=== PATIENT | male | born 1980 | race Caucasian/White ===

== ENCOUNTER 2016-10-18 11:14 | Outpatient (CLI) ==
[2016-05-26 05:33] VITALS: BMI 38.4
[2016-10-18 12:30] LABS: ALBUMIN 3.8 g/dL (3.4-5.0); ALBUMIN/GLOBULIN RATIO 1.27; ANION GAP 13.2; BILIRUBIN,TOTAL 0.45 mg/dL (0.00-1.20); BUN/CREATININE RATIO 11.32; CALCIUM 9.1 mg/dL (8.2-10.2); CHOL/HDL RATIO 5.2 (4.5-6.4); CREATININE 1.06 mg/dL (0.60-1.10); POTASSIUM 4.2 mmol/L (3.5-5.1); TOTAL PROTEIN 6.8 g/dL (6.4-8.2)
[2016-10-19 09:38] LABS: VITAMIN D25 17.5 ng/mL (30.0-100.0)
== END 2016-10-18 11:15 | disposition home or self-care (01) ==
LOC: LAB 11:14
PROVIDERS: ATTEND Internal Medicine Endocrinology, Diabetes & Metabolism
DX: E04.2 Nontoxic multinodular goiter (principal); E03.9 Hypothyroidism, unspecified; I10 Essential (primary) hypertension; E78.00 Pure hypercholesterolemia, unspecified; E11.65 Type 2 diabetes mellitus with hyperglycemia; Z79.4 Long term (current) use of insulin
CPT/HCPCS: 36415; 80053; 80061; 82306; 82607; 83036; 84439; 84443; 86376

== ENCOUNTER 2017-01-10 15:39 | Outpatient (CLI) ==
[2016-05-26 05:33] VITALS: BMI 38.4
--- NOTE | 2017-01-10 16:45 | CT ---
EXAM: CT Abdomen without contrast. CT Pelvis without contrast. HISTORY: Upper abdominal pain. COMPARISON: 11/02/2012. TECHNIQUE: Multiple axial images of the abdomen and pelvis were obtained without intravenous contra st. Images were reformatted in the coronal plane. FINDINGS: Please note that evaluation of the abdominal and pelvic structures is limited due to lack of intravenous contrast. The lung bases are clear. No acute osseous abnormality detected. The liver, gallbladder, pancreas, spleen, and adrenal glands demonstrate normal contour. No calcifi ed renal stones, hydronephrosis or perinephric inflammation identified. The bowel is normal in course and caliber without evidence for obstruction or inflammatory process. The appendix is normal. Mild colonic diverticulosis noted. Multiple noncalcified mesenteric lymph nodes are present which do not appear enlarged. No free fluid or free air identified. Small fat-c ontaining umbilical hernia noted. Urinary bladder is only mildly distended. Phleboliths seen in th e pelvis. IMPRESSION: No acute abnormality in the abdomen or pelvis.
== END 2017-01-10 15:40 | disposition home or self-care (01) ==
LOC: RAD 15:39
PROVIDERS: ATTEND Family Medicine
DX: R10.30 Lower abdominal pain, unspecified (principal)

== ENCOUNTER 2017-01-11 02:02 | Emergency (ER) ==
[2017-01-11 02:02] VITALS: BMI 38.4
[2017-01-11] MEDS ORDERED: SODIUM CHLORIDE 1,000 ML IV STA ×2 (02:04→02:05)
[2017-01-11] MEDS ORDERED: DILAUDID 1 MG/ML SYRINGE IVP PRN (02:07)
[2017-01-11] MEDS ORDERED: PHENERGAN 25 MG/ML VIAL 25 MG in SODIUM CHLORIDE 50 ML IV STA (02:07)
[2017-01-11 02:14] VITALS: BP 125/80; TEMP 97.9
[2017-01-11 02:26] LABS: BASOPHILS # (AUTO) 0.1 K/uL (0-0.2); BASOPHILS % (AUTO) 0.9 % (0.0-3.0); EOSINOPHILS # (AUTO) 0.1 K/ul (0.0-0.7); EOSINOPHILS % (AUTO) 1.2 % (0.0-7.0); HEMATOCRIT 42.6 % (42.0-52.0); HEMOGLOBIN 14.9 g/dl (14.0-18.0); LYMPHOCYTES # (AUTO) 3.6 K/uL (0.60-3.4); LYMPHOCYTES % (AUTO) 38.9 (10.0-50.0); MEAN CORPUSCULAR HEMOGLOBIN 28.7 pg (27.0-31.0); MEAN CORPUSCULAR VOLUME 82.1 fl (80.0-94.0); MONOCYTES # (AUTO) 0.6 K/uL (0.4-2.0); MONOCYTES % (AUTO) 6.7 (0-10); NEUTROPHILS # (AUTO) 4.7 K/ul (2.0-6.9); NEUTROPHILS % (AUTO) 51.3; PLATELET COUNT 355 10^3/uL (140-440); RED BLOOD COUNT 5.19 10^6/ul (4.70-6.10); WHITE BLOOD COUNT 9.15 K/ul (4.2-10.2)
[2017-01-11] MEDS ORDERED: PHENERGAN 25 MG/ML VIAL ONE (02:37)
[2017-01-11 02:52] LABS: ALANINE AMINOTRANSFERASE 31 U/L (12-78); ALBUMIN 3.9 g/dL (3.4-5.0); ALBUMIN/GLOBULIN RATIO 1.18; ALKALINE PHOSPHATASE 78 U/L (50-136); AMYLASE 34 U/L (25-115); ANION GAP 17.8; ASPARTATE AMINO TRANSFERASE 27 U/L (15-37); BILIRUBIN,TOTAL 0.36 mg/dL (0.00-1.20); BLOOD UREA NITROGEN 12 mg/dL (7-18); BUN/CREATININE RATIO 12.76; CARBON DIOXIDE 19 mmol/L (21-32); CHLORIDE 105 mmol/L (98-107); CREATINE KINASE 51 U/L; CREATININE 0.94 mg/dL (0.60-1.10); GLUCOSE 237 mg/dL (70-100); LIPASE 27 U/L (8-78); POTASSIUM 4.8 mmol/L (3.5-5.1); SODIUM 137 mmol/L (136-145); TOTAL PROTEIN 7.2 g/dL (6.4-8.2)
[2017-01-11] MEDS ORDERED: DILAUDID 1 MG/ML SYRINGE ONE (02:52)
[2017-01-11 03:00] LABS: ERYTHROCYTE SEDIMENTATION RATE 11 mm/hr (0-15); ESR INTERNAL QC INTERNAL QC VALID
[2017-01-11 03:40] LABS: ADD URINE MICROSCOPIC NO; BILIRUBIN,URINE Negative (NEGATIVE); KETONES,URINE Negative (NEGATIVE); LEUKOCYTE ESTERASE ,URINE Negative (NEGATIVE); NITRITE,URINE Negative (NEGATIVE); PROTEIN,URINE Negative (NEGATIVE); URINE, BLOOD Negative (NEGATIVE)
--- NOTE | 2017-01-11 04:12 | CT ---
EXAM: CT scan abdomen pelvis with without contrast HISTORY: Abdominal pain left lower quadrant pain COMPARISON: CT scan abdomen pelvis in 01/10/2017 FINDINGS: Contiguous axial images were obtained through the abdomen and pelvis both before after th e uneventful administration of intravenous contrast utilizing 3-mm collimation. Sagittal and lao l reconstructions were imaged and reviewed... The visualized lung bases are clear. The gallbladder is fluid filled without cholelithiasis. There is a small hiatal hernia. The liver, pancreas, splee n and adrenal glands have normal enhanced CT appearance. The kidneys excrete contrast in a normal f ashion bilaterally. The abdominal aorta is normal in course and caliber without aneurysm formation. There is a small umbilical hernia containing only fat. There is a normal appendix. Prostate glan d is normal in size. There is no evidence of free fluid or inflammatory changes.. Scattered subcen timeter mesenteric lymph nodes are noted. IMPRESSION: No acute intra-abdominal findings.
--- NOTE | 2017-01-11 05:19 | ED.PDOC ---
General ED Provider: Dr. MERCEDES TATE-ER Chief Complaint: Abdominal Pain Stated Complaint: ikm hurting Time Seen by Physician: 05:16 Mode of Arrival: Walk-In Information Source: Patient Exam Limitations: No limitations Primary Care Provider: MERCEDES TATE Nursing and Triage Documentation Reviewed and Agree: Yes GI Complaint Exam - Abdominal Pain Complaint/Exam Onset: Gradual Duration: 4 weeks Symptoms Are: Still present Timing: Constant Initial Severity: Mild Current Severity: Moderate Location of Pain: LUQ Character: Reports: Dull, Aching Alleviating: Reports: None Associated Signs and Symptoms: Denies: Diaphoresis, Fever, Cough, Chest pain, Dizziness, Back pain, Constipation, Blood in stool, Dysuria, Urinary frequency, Decreased urine output, Decreased appetite, Discharge, Nausea, Vomiting, Diarrhea, Decreased activity Related History: Reports: Similar episode AAA Risk Factors: Reports: Hypertension Cardiac Risk Factors: Reports: Hypertension Testicular Torsion Risk Factors: Reports: None Surgical Obstruction Risk Factors: Reports: None Related Surgical History: Reports: Cholecystectomy Abdominal Findings: Present: None Differential Diagnoses: Diverticulitis, Irritable Bowel Syndrome, Ureteral Stone Quality Indicator For Non-Traumatic Chest Pain/Syncope: EKG Performed Review of Systems - Review Of Systems Constitutional: Reports: No symptoms Eyes: Reports: No symptoms Ears, Nose, Mouth, Throat: Reports: No symptoms Respiratory: Reports: No symptoms Cardiac: Reports: No symptoms GI: Reports: Abdominal pain : Reports: No symptoms Musculoskeletal: Reports: No symptoms Skin: Reports: No symptoms Neurological: Reports: No symptoms Endocrine: Reports: No symptoms Hematologic/Lymphatic: Reports: No symptoms All Other Systems: Reviewed and Negative Past Medical History - Past Medical History Previously Healthy: Yes Endocrine: Reports: None, DM 2, Hyperthyroid, Dyslipidemia Cardiovascular: Reports: Other (Implanted Cardiac Monotor) Respiratory: Reports: None Hematological: Reports: None Gastrointestinal: Reports: None Genitourinary: Reports: None Neuro/Psych: Reports: Migraine, Anxiety, Depression Musculoskeletal: Reports: Back Pain (Chronic; sequal to back injury) Cancer: Reports: None Other Pertinent Past Medical History: Hx multiple syncopal episodes; cardiat monitor implanted - 9 mo ago - Surgical History General Surgical History: Reports: Tonsillectomy, 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) - Family History Family History: Reports: None - Social History Smoking Status: Never smoker Hx Substance Use: No Alcohol Screening: None Lives: With family - Immunizations Tetanus Shot up to Date: Yes Physical Exam - Physical Exam Appearance: Well-appearing, No pain distress, Well-nourished Pain Distress: Moderate Eyes: PARKER, EOMI, Conjunctiva clear ENT: Ears normal, Nose normal, Oropharynx normal Neck: Supple Respiratory: Airway patent Cardiovascular: RRR GI/: Soft, Nontender, No masses, Bowel sounds normal, No Organomegaly Musculoskeletal: Normal strength, ROM intact, No edema, No calf tenderness Skin: Warm Neurological: Sensation intact Psychiatric: Affect appropriate, Mood appropriate Interpretation - Radiology Interpretation Radiology Interpretation By: Radiologist Radiology Results: Negative Exam Interpreted: CT Scan - EKG Interpretation Time of EKG #1: 05:19 Rate: Normal Rhythm: Sinus Ectopy: None [place]: [place] ST Segment: Normal Re-Evaluation - Re-Evaluation Time of Re-Evaluation: 05:19 Status: Improved Vital Signs Stable: Yes Pain Level: 0 Appearance: NAD Lungs: Clear Skin: Warm and Dry Neuro: Alert and Oriented X3 CV: RRR Critical Care Note - Critical Care Note Total Time (mins): 0 Course - Course Hematology/Chemistry: 01/11/17 02:20 01/11/17 02:20 Orders, Labs, Meds: Lab Review 01/11/17 01/11/17 02:20 03:35 WBC 9.15 RBC 5.19 Hgb 14.9 Hct 42.6 MCV 82.1 MCH 28.7 MCHC 35.0 RDW Coeff of Angel 12.5 Plt Count 355 Immature Gran % (Auto) 1.0 Neut % (Auto) 51.3 Lymph % (Auto) 38.9 Mcdonald % (Auto) 6.7 Eos % (Auto) 1.2 Baso % (Auto) 0.9 Immature Gran # (Auto) 0.1 Neut # 4.7 Lymph # 3.6 H Mcdonald # 0.6 Eos # 0.1 Baso # 0.1 ESR 11 Sodium 137 Potassium 4.8 Chloride 105 Carbon Dioxide 19 L Anion Gap 17.8 BUN 12 Creatinine 0.94 Estimated GFR (MDRD) 90.00 BUN/Creatinine Ratio 12.76 Glucose 237 H Calcium 9.0 Total Bilirubin 0.36 AST 27 ALT 31 Alkaline Phosphatase 78 Total Creatine Kinase 51 Troponin I < 0.0100 Total Protein 7.2 Albumin 3.9 Globulin 3.3 Albumin/Globulin Ratio 1.18 Amylase 34 Lipase 27 Urine Color Yellow Urine Clarity Clear Urine pH 5.0 Ur Specific [place] 1.015 Urine Protein Negative Urine Glucose (UA) Negative Urine Ketones Negative Urine Blood Negative Urine Nitrite Negative Urine Bilirubin Negative Urine Urobilinogen 0.2 Ur Leukocyte Esterase Negative Orders Category Date Time Status EKG-(ED ONLY) Stat CARDIO 01/11/17 02:03 Completed NPO REMINDER: IMAGING ONCE CARE 01/11/17 03:00 Completed IV [ED IV/MEDIPORT/POWERPORT] .ONCE EMERGENCY 01/11/17 02:04 Active AMYLASE Stat LAB 01/11/17 02:20 Completed CBC W/ AUTO DIFF Stat LAB 01/11/17 02:20 Completed COMPREHENSIVE METABOLIC PANEL Stat LAB 01/11/17 02:20 Completed CREATINE KINASE Stat LAB 01/11/17 02:20 Completed ESR Stat LAB 01/11/17 02:20 Completed LIPASE Stat LAB 01/11/17 02:20 Completed TROPONIN I Stat LAB 01/11/17 02:20 Completed URINALYSIS C & S IF INDICATED Stat LAB 01/11/17 03:35 Completed 0.9 % Sodium Chloride [Saline Flush] MEDS 01/11/17 02:04 Ordered 1 syr IVF PRN PRN Hydromorphone HCl [Dilaudid 1 mg/ml Syringe] MEDS 01/11/17 02:07 Ordered 1 mg IVP Q1HR PRN Promethazine HCl [Phenergan 25 mg/ml Vial] MEDS 01/11/17 02:37 Discontinued 25 mg .ROUTE .STK-MED ONE Promethazine HCl [Phenergan 25 mg/ml Vial] 25 mg MEDS 01/11/17 02:07 Discontinued 0.9 % Sodium Chloride [Sodium Chloride] 50 ml IV ONCE Sodium Chloride 0.9% [Sodium Chloride] 1,000 ml MEDS 01/11/17 02:05 Active IV 100 mls/hr CT ABDOMEN/PELVIS W/WO CONTRAS Stat RADS 01/11/17 03:00 Completed Medications Generic Name Dose Route Start Last Admin Trade Name Freq PRN Reason Stop Dose Admin Hydromorphone HCl 1 mg 01/11/17 02:07 01/11/17 02:53 Dilaudid 1 Mg/Ml Syringe IVP 1 mg Q1HR PRN Administration Abdominal Pain Sodium Chloride 1,000 mls @ 100 mls/hr 01/11/17 02:05 01/11/17 02:43 Sodium Chloride IV 01/11/17 12:04 100 mls/hr .Q10H STA Administration Sodium Chloride 1 syr 01/11/17 02:04 01/11/17 02:58 Saline Flush IVF 1 syr PRN PRN Administration To flush IV Discontinued Medications Generic Name Dose Route Start Last Admin Trade Name Aleksandr PRN Reason Stop Dose Admin Promethazine HCl 25 mg/ Sodium 51 mls @ 75 mls/hr 01/11/17 02:07 01/11/17 02: 43 Chloride IV 01/11/17 02:47 75 mls/hr ONCE STA Administration Vital Signs: Temp Pulse Resp BP Pulse Ox 01/11/17 02:04 97.9 F 75 20 125/80 96 Departure - Departure Time of Disposition: 05:19 Disposition: HOME SELF-CARE Discharge Problem: Abdominal pain Instructions: Abdominal Pain (ED) Condition: Good Pt referred to PMD for follow-up: Yes Additional Instructions: librax q 8hrs --call if any problems Allergies/Adverse Reactions: Allergies No Known Allergies Allergy (Verified 01/11/17 02:14) Home Medications: Ambulatory Orders Carvedilol [Coreg] 12.5 mg PO BID 06/28/13 Levothyroxine Sodium [Synthroid] 175 mcg PO DAILY 06/28/13 Metformin HCl 1,000 mg PO BEDTIME 06/28/13 Metformin HCl [Glucophage] 1,500 mg PO DAILY 06/28/13 Insulin Glargine,Hum.rec.anlog [Lantus] 50 unit SUBCUT BEDTIME 09/21/13 Hydrocodone/Acetaminophen [Lortab 10-325 mg Tablet] 1 each PO BID 08/01/15 Promethazine HCl [Phenergan Tab] 25 mg PO Q6H PRN #15 tablet 08/02/15 Atorvastatin Calcium [Lipitor] 10 mg PO BEDTIME 11/12/15 Insulin Lispro [Humalog] 100 unit SQ TIDWM vial 05/24/16 Lisinopril [Zestril] 5 mg PO DAILY 01/11/17 Verapamil HCl [Verapamil ER] 120 mg PO DAILY 01/11/17 Disposition Discussed With: Patient
== END 2017-01-11 05:35 | disposition home or self-care (01) ==
LOC: ED 02:02
DX: R10.12 Left upper quadrant pain (principal); I10 Essential (primary) hypertension; E11.9 Type 2 diabetes mellitus without complications; E78.5 Hyperlipidemia, unspecified; E05.90 Thyrotoxicosis, unspecified without thyrotoxic crisis or storm; Z79.899 Other long term (current) drug therapy; Z87.898 Personal history of other specified conditions
CPT/HCPCS: 36415; 80053; 81001; 82150; 82550; 83690; 84484; 85025; 85651; 93005; 93010; 96361; 96365; 96375; 99283

== ENCOUNTER 2017-02-28 13:23 | Outpatient (CLI) | END 2017-02-28 13:45 | disposition home or self-care (01) | LOC: AMBL 13:23 | PROVIDERS: ATTEND Emergency Medicine | DX: R55 Syncope and collapse (principal); R07.89 Other chest pain ==

== ENCOUNTER 2017-04-27 08:08 | Outpatient (CLI) ==
--- NOTE | 2017-04-27 08:43 | US ---
EXAM: Limited abdominal ultrasound. History: Upper abdominal pain. Comparison: CT abdomen pelvis 01/11/2017 Technique: Multiple sonographic images through the abdomen were obtained. Color duplex Doppler was used to interrogate vascular flow. Findings: The visualized pancreas demonstrates no gross abnormality. There is antegrade flow within the main portal vein. The liver is not echogenic compared to the adjacent right renal cortex. No shadowing gallstones. Gallbladder wall is not thickened. Common bile duct measures 0.4 cm in caliber. No ab dominal ascites. Right kidney is not well visualized due to obscuration by bowel gas. Impression: No acute sonographic findings.
== END 2017-04-27 08:09 | disposition home or self-care (01) ==
LOC: RAD 08:08
PROVIDERS: ATTEND Family Medicine
DX: R10.12 Left upper quadrant pain (principal)

== ENCOUNTER 2017-05-13 07:46 | Outpatient (CLI) ==
--- NOTE | 2017-05-13 12:20 | NM ---
EXAM: Hepatobiliary scan HISTORY: Abdominal pain. COMPARISON: None of this type. Ultrasound 04/27/2017. PROCEDURE: The patient was injected with 5.4 mCi of 99mTc mebrofenin intravenously. Images of the a bdomen were obtained at 1 min intervals for 18 minutes. Additional images were obtained at 20, 25, 30, 45, 16, 90, 120 and 180 minutes. FINDINGS: Sequential images demonstrate normal uptake of tracer into the liver. Activity is seen in the intrahepatic biliary ducts at about 8 minutes. Activity first appears in the small bowel at 8 minutes. No activity is seen within the gallbladder at 3 hours. IMPRESSION: 1.The examination demonstrates a normal distribution of activity within the liver. 2.There is prompt appearance of activity in the intrahepatic and common bile ducts and ubsequently i n the small bowel. 3.No activity is seen in the gallbladder at 3 hours. This finding is indicative of cystic duct obst ruction which, in the appropriate clinical setting, can be evidence of acute cholecystitis.
== END 2017-05-13 07:47 ==
LOC: RAD 07:46
PROVIDERS: ATTEND Family Medicine
DX: R10.12 Left upper quadrant pain (principal)

== ENCOUNTER 2017-07-04 13:10 | Emergency (ER) ==
[2017-07-04 13:10] VITALS: BMI 38.4
[2017-07-04 13:14] VITALS: BP 146/90; TEMP 98.4
[2017-07-04 14:53] LABS: BILIRUBIN,URINE Negative (NEGATIVE); KETONES,URINE 1+ (NEGATIVE); LEUKOCYTE ESTERASE ,URINE Negative (NEGATIVE); NITRITE,URINE Negative (NEGATIVE); PROTEIN,URINE Negative (NEGATIVE); URINE, BLOOD Negative (NEGATIVE)
[2017-07-04 14:54] LABS: ADD URINE MICROSCOPIC NO
--- NOTE | 2017-07-04 14:55 | CT ---
EXAM: CT LUMBAR SPINE HISTORY: Pain TECHNIQUE: CT lumbar spine without contrast. 3-mm axial sections. Coronal and sagittal reformation s. COMPARISON: 01/11/2017 FINDINGS: No acute fracture or subluxation. Normal vertebral body height and alignment. Sacroiliac joints are within normal limits. 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 There is mild broad-based disc bu lging at multiple levels leading to mild central canal and neural foraminal stenosis probably most ap parent L3/L4 and L4/L5. There is no bony destruction or paraspinal fluid collection. Leads for spin al stimulator are noted. IMPRESSION: Diffuse degenerative disc disease leading to multilevel mild central canal and neural foraminal narro wing.
[2017-07-04 15:04] LABS: BASOPHILS % (AUTO) 0.3 % (0.0-3.0); EOSINOPHILS # (AUTO) 0.1 K/ul (0.0-0.7); EOSINOPHILS % (AUTO) 0.7 % (0.0-7.0); HEMATOCRIT 39.6 % (42.0-52.0); HEMOGLOBIN 13.9 g/dl (14.0-18.0); LYMPHOCYTES # (AUTO) 2.7 K/uL (0.60-3.4); LYMPHOCYTES % (AUTO) 22.8 (10.0-50.0); MEAN CORPUSCULAR HEMOGLOBIN 28.5 pg (27.0-31.0); MEAN CORPUSCULAR HGB CONC 35.1 (31.8-35.4); MEAN CORPUSCULAR VOLUME 81.3 fl (80.0-94.0); MONOCYTES # (AUTO) 0.5 K/uL (0.4-2.0); MONOCYTES % (AUTO) 4.5 (0-10); NEUTROPHILS # (AUTO) 8.2 K/ul (2.0-6.9); NEUTROPHILS % (AUTO) 69.7; PLATELET COUNT 518 10^3/uL (140-440); RED BLOOD COUNT 4.87 10^6/ul (4.70-6.10); WHITE BLOOD COUNT 11.73 K/ul (4.2-10.2)
--- NOTE | 2017-07-04 15:16 | CT ---
EXAM: CT thoracic spine without contrast HISTORY: Pain COMPARISON: MRI is 04/17/2010 TECHNIQUE: CT thoracic spine performed without intravenous contrast. Coronal and sagittal reformatt ed images obtained. FINDINGS: The vertebral bodies normal height. No fracture. No subluxation. There is a spinal stim ulator or that terminates at the T8-T9 level. Mild chronic discogenic degenerative disease with mild multilevel intervertebral disc space narrowing and small marginal osteophyte formation. Central can al grossly patent. Postsurgical changes of laminectomy T9 and T10 level. Mild stranding posterior pa raspinal tissues is likely postsurgical with small foci of associated air, also likely postsurgical. No focal drainable collection. IMPRESSION: 1. No fracture or subluxation. 2. Mild chronic discogenic degenerative disease. 3. Spinal stimulator. Postsurgical changes as described.
[2017-07-04 15:35] LABS: ALBUMIN 3.7 g/dL (3.4-5.0); ALBUMIN/GLOBULIN RATIO 0.93; ANION GAP 12.1; BILIRUBIN,TOTAL 0.7 mg/dL (0.00-1.20); BUN/CREATININE RATIO 10.37; CREATININE 1.06 mg/dL (0.60-1.10); POTASSIUM 4.1 mmol/L (3.5-5.1); TOTAL PROTEIN 7.7 g/dL (6.4-8.2)
--- NOTE | 2017-07-04 15:47 | ED.PDOC ---
General ED Provider: Dr. ANÍBAL MARC Chief Complaint: Fever Stated Complaint: back pain post op Time Seen by Physician: 13:10 (seen with richa at all times ) Mode of Arrival: Walk-In Information Source: Patient Exam Limitations: No limitations Primary Care Provider: MERCEDES TATE Nursing and Triage Documentation Reviewed and Agree: Yes (post op has night sweats ) Musculoskeletal Complaint Exam - Back Pain Complaint/Exam Mechanism of Injury: Reports: Other (post op) Onset/Duration: night sweats post op Symptoms Are: Still present Timing: Intermittent Episodes Lasting: Days Initial Severity: Mild Current Severity: None Character: Reports: Dull Aggravating: Reports: None Alleviating: Reports: None Associated Signs and Symptoms: Denies: Swelling, Redness, Bruising, Fever, Weakness, Numbness, Tingling, Abdominal pain, Flank pain, Bladder incontinence, Bowel incontinence, Weight loss, Pain with weight bearing Related History: Reports: Similar episode TAD Risk Factors: Reports: None AAA Risk Factors: Reports: None Cauda Equina Risk Factors: Reports: None Epidural Abcess Risk Factors: Reports: None Related Surgical History: Reports: None Focal Tenderness: No Paraspinal Muscle Tenderness: No Paraspinal Muscle Spasm: No Scoliosis: No Lordosis: No Kyphosis: No SLR Test: Right Negative, Left Negative Hip Motion Testing Pain: Right Negative, Left Negative Focal Weakness: Present: None Focal Sensory Loss: Present: None Gait: Present: Normal Differential Diagnoses: Epidural Abcess, Strain, Sprain Review of Systems - Review Of Systems Constitutional: Reports: No symptoms Eyes: Reports: No symptoms Ears, Nose, Mouth, Throat: Reports: No symptoms Respiratory: Reports: No symptoms Cardiac: Reports: No symptoms GI: Reports: No symptoms : Reports: No symptoms Musculoskeletal: Reports: Back pain Skin: Reports: No symptoms Neurological: Reports: No symptoms Endocrine: Reports: No symptoms Hematologic/Lymphatic: Reports: No symptoms All Other Systems: Reviewed and Negative Past Medical History - Past Medical History Previously Healthy: Yes Endocrine: Reports: None, DM 2, Hyperthyroid, Dyslipidemia Cardiovascular: Reports: Other (Implanted Cardiac Monotor) Respiratory: Reports: None Hematological: Reports: None Gastrointestinal: Reports: None Genitourinary: Reports: None Neuro/Psych: Reports: Migraine, Anxiety, Depression Musculoskeletal: Reports: Back Pain (Chronic; sequal to back injury) Cancer: Reports: None Other Pertinent Past Medical History: Hx multiple syncopal episodes; cardiat monitor implanted - 9 mo ago - Surgical History General Surgical History: Reports: Tonsillectomy, Other (Complaint Manager placed 9 mo ago) - Family History Family History: Reports: None - Social History Smoking Status: Never smoker Hx Substance Use: No Alcohol Screening: None Physical Exam - Physical Exam Appearance: Well-appearing, No pain distress, Well-nourished Eyes: PARKER, EOMI, Conjunctiva clear ENT: Ears normal, Nose normal, Oropharynx normal Respiratory: Airway patent, Breath sounds clear, Breath sounds equal, Respirations nonlabored Cardiovascular: RRR, Pulses normal, No rub, No murmur GI/: Soft, Nontender, No masses, Bowel sounds normal, No Organomegaly Musculoskeletal: Normal strength, ROM intact, No edema, No calf tenderness Skin: Warm, Dry, Normal color Neurological: Sensation intact, Motor intact, Reflexes intact, Cranial nerves intact, Alert, Oriented Psychiatric: Affect appropriate, Mood appropriate Interpretation - Radiology Interpretation Radiology Interpretation By: Radiologist Radiology Results: No acute changes Critical Care Note - Critical Care Note Total Time (mins): 0 Course - Course Hematology/Chemistry: 07/04/17 14:50 07/04/17 14:50 Orders, Labs, Meds: Lab Review 07/04/17 07/04/17 07/04/17 14:30 14:50 14:50 WBC 11.73 H RBC 4.87 Hgb 13.9 L Hct 39.6 L MCV 81.3 MCH 28.5 MCHC 35.1 RDW Coeff of Angel 12.2 Plt Count 518 H Immature Gran % (Auto) 2.0 Neut % (Auto) 69.7 Lymph % (Auto) 22.8 [place] % (Auto) 4.5 Eos % (Auto) 0.7 Baso % (Auto) 0.3 Immature Gran # (Auto) 0.2 Neut # 8.2 H Lymph # 2.7 [place] # 0.5 Eos # 0.1 Baso # 0.0 Sodium 136 Potassium 4.1 Chloride 99 Carbon Dioxide 29 Anion Gap 12.1 BUN 11 Creatinine 1.06 Estimated GFR (MDRD) 79.00 BUN/Creatinine Ratio 10.37 Glucose 276 H Calcium 10.0 Total Bilirubin 0.70 AST 37 ALT 99 H Alkaline Phosphatase 273 H Total Protein 7.7 Albumin 3.7 Globulin 4.0 Albumin/Globulin Ratio 0.93 Urine Color Yellow Urine Clarity Clear Urine pH 6.0 Ur Specific [place] 1.020 Urine Protein Negative Urine Glucose (UA) Negative Urine Ketones 1+ Urine Blood Negative Urine Nitrite Negative Urine Bilirubin Negative Urine Urobilinogen 0.2 Ur Leukocyte Esterase Negative Orders Category Date Time Status CBC W/ AUTO DIFF Stat LAB 07/04/17 14:50 Completed COMPREHENSIVE METABOLIC PANEL Stat LAB 07/04/17 14:50 Completed URINALYSIS C & S IF INDICATED Stat LAB 07/04/17 14:[address] LUMBAR SPINE W/O CONTRAST Stat RADS 07/04/17 13:[address] THORACIC SPINE W/O CONTRAST Stat RADS 07/04/17 13:37 Completed Vital Signs: Temp Pulse Resp BP Pulse Ox 07/04/17 13:10 98.4 F 83 20 146/90 H 98 Departure - Departure Time of Disposition: 15:47 Disposition: HOME SELF-CARE Discharge Problem: Night sweats Back pain Qualifiers: Chronicity: unspecified Back pain laterality: unspecified Sciatica presence: without sciatica Instructions: Fever in Adults (ED), Back Pain (ED) Condition: Good Pt referred to PMD for follow-up: Yes Additional Instructions: Please call your Family Physician as soon as possible to schedule a follow-up appointment. Allergies/Adverse Reactions: Allergies No Known Allergies Allergy (Verified 07/04/17 13:15) Home Medications: Ambulatory Orders Carvedilol [Coreg] 12.5 mg PO BID 06/28/13 Levothyroxine Sodium [Synthroid] 175 mcg PO DAILY 06/28/13 Metformin HCl 1,000 mg PO BEDTIME 06/28/13 Metformin HCl [Glucophage] 1,500 mg PO DAILY 06/28/13 Insulin Glargine,Hum.rec.anlog [Lantus] 50 unit SUBCUT BEDTIME 09/21/13 Hydrocodone/Acetaminophen [Lortab 10-325 mg Tablet] 1 each PO BID 08/01/15 Atorvastatin Calcium [Lipitor] 10 mg PO BEDTIME 11/12/15 Insulin Lispro [Humalog] 100 unit SQ TIDWM vial 05/24/16 Lisinopril [Zestril] 5 mg PO DAILY 01/11/17 Verapamil HCl [Verapamil ER] 120 mg PO DAILY 01/11/17
== END 2017-07-04 15:56 | disposition home or self-care (01) ==
LOC: ED 13:10
DX: R61 Generalized hyperhidrosis (principal); M54.9 Dorsalgia, unspecified; Z98.890 Other specified postprocedural states; Z79.899 Other long term (current) drug therapy
CPT/HCPCS: 36415; 80053; 81001; 85025; 99283

== ENCOUNTER 2017-11-20 10:41 | Emergency (ER) ==
[2017-11-20] MEDS ORDERED: SODIUM CHLORIDE 1,000 ML IV STA (10:45)
[2017-11-20] MEDS ORDERED: ASPIRIN CHEWABLE PO STA (10:46)
[2017-11-20] MEDS ORDERED: NITROSTAT SL PRN (10:46)
[2017-11-20 10:48] VITALS: BP 128/78; TEMP 97.6; BMI 35.9
--- NOTE | 2017-11-20 10:50 | ED.PDOC ---
General ED Provider: Dr. MERCEDES TATE-ER Chief Complaint: Chest Pain Stated Complaint: im hving chest pain--i saw dr shaw on tuesday--he started me on ntg and scheduled for cardiac cath on tuesday Time Seen by Physician: 10:49 Mode of Arrival: Walk-In Information Source: Patient, Family Exam Limitations: No limitations Primary Care Provider: MERCEDES TATE Nursing and Triage Documentation Reviewed and Agree: Yes Reviewed sepsis parameters & appropriate labs ordered?: Yes System Inflammatory Response Syndrome: Not Applicable Sepsis Protocol: For patient's 13 years and over: Temp is 96.8 and below OR 101 and greater Pulse >90 BPM Resp >20/minute Acutely Altered Mental Status Are patient's symptoms suggestive of a new infection, such as: -Pneumonia -Skin, Soft Tissue -Endocarditis -UTI -Bone, Joint Infection -Implantable Device -Acute Abdominal Infection -Wound Infection -Meningitis -Blood Stream Catheter Infection -Unknown Cardiovascular Complaint Exam - Chest Pain Complaint/Exam Onset: Gradual Duration: 6 hrs Symptoms Are: Still present Timing: Constant Initial Severity: Mild Current Severity: Moderate Location: Reports: Diffuse Pain Radiates: Reports: Neck Character: Reports: Dull, Aching, Heaviness, Pressure Aggravating: Reports: None Alleviating: Reports: None Associated Signs and Symptoms: Denies: Diaphoresis, Nausea, Vomiting, Fever, Palpitations, Cough, Hemoptysis, Back pain, Abdominal pain, Dizziness, Short of air, Calf pain, Calf swelling Related History: Reports: Similar episode History of Healthcare-Acquired Pneumonia: Reports: No AMI/ACS Risk Factors: Reports: Sedentary, Diabetes, Obesity, Family history TAD Risk Factors: Reports: Hypertension Prior Care for this Complaint: Yes Recent Stress Test: No Recent Echo/LV Function: No JVD Present: No Subcutaneous Emphysema Present: No Diminshed Breath Sounds: No Reproducible Chest Wall Pain: No Bilateral Pulses Present: Yes Unequal Pulses Noted: No If Risk Factors for AMI/ACS Consider: EKG, Cardiac Enzymes Care and Dx Studies Discussed With: Family Tactical Debriefer Consulted: No Differential Diagnoses: Acute OR, ACS Quality Indicator For Non-Traumatic Chest Pain/Syncope: EKG Performed Review of Systems - Review Of Systems Constitutional: Reports: No symptoms Eyes: Reports: No symptoms Ears, Nose, Mouth, Throat: Reports: No symptoms Respiratory: Reports: No symptoms Cardiac: Reports: Chest pain GI: Reports: No symptoms : Reports: No symptoms Musculoskeletal: Reports: No symptoms Skin: Reports: No symptoms Neurological: Reports: No symptoms Endocrine: Reports: No symptoms Hematologic/Lymphatic: Reports: No symptoms All Other Systems: Reviewed and Negative Past Medical History - Past Medical History Previously Healthy: Yes Endocrine: Reports: None, DM 2, Hyperthyroid, Dyslipidemia Cardiovascular: Reports: Other (Implanted Cardiac Monotor) Respiratory: Reports: None Hematological: Reports: None Gastrointestinal: Reports: None Genitourinary: Reports: None Neuro/Psych: Reports: Migraine, Anxiety, Depression Musculoskeletal: Reports: Back Pain (Chronic; sequal to back injury) Cancer: Reports: None Other Pertinent Past Medical History: Hx multiple syncopal episodes; cardiat monitor implanted - 9 mo ago - Surgical History General Surgical History: Reports: Tonsillectomy, Other (Boating Safety Officer placed 9 mo ago) - Family History Family History: Reports: None - Social History Smoking Status: Never smoker Hx Substance Use: No Alcohol Screening: None Lives: With family Physical Exam - Physical Exam Appearance: Well-appearing, No pain distress, Well-nourished Eyes: PARKER, EOMI, Conjunctiva clear ENT: Ears normal, Nose normal, Oropharynx normal Neck: Supple Respiratory: Airway patent Cardiovascular: RRR, Pulses normal, No rub, No murmur GI/: Soft Musculoskeletal: Normal strength, ROM intact, No edema, No calf tenderness Skin: Warm, Dry, Normal color Neurological: Sensation intact, Motor intact, Reflexes intact, Cranial nerves intact, Alert, Oriented Psychiatric: Affect appropriate, Mood appropriate, Anxious Interpretation - Radiology Interpretation Radiology Interpretation By: Radiologist Radiology Results: Negative Exam Interpreted: Portable CXR - EKG Interpretation Time of EKG #1: 11:00 Rate: Normal Rhythm: Sinus Ectopy: None [place]: NL ST Segment: Normal Physician Notification - Case Discussed Physician Notified: dr reid--[facility] Time of Notification: 11:19 Critical Care Note - Critical Care Note Total Time (mins): 30 Course - Course Hematology/Chemistry: 11/20/17 10:55 Orders, Labs, Meds: Lab Review 11/20/17 10:55 WBC 8.72 RBC 5.01 Hgb 14.4 Hct 40.4 L MCV 80.6 MCH 28.7 MCHC 35.6 H RDW Coeff of Angel 12.5 Plt Count 295 Immature Gran % (Auto) 0.8 Neut % (Auto) 59.0 Lymph % (Auto) 32.9 [place] % (Auto) 5.4 Eos % (Auto) 1.4 Baso % (Auto) 0.5 Immature Gran # (Auto) 0.1 Neut # 5.2 Lymph # 2.9 [place] # 0.5 Eos # 0.1 Baso # 0.0 Orders Category Date Time Status EKG-(ED ONLY) Stat CARDIO 11/20/17 10:44 Ordered Boating Safety Officer [ED MEDIA PRODUCTION OPERATOR APPLIED] .ONCE EMERGENCY 11/20/17 10:45 Active ED IV/MEDIPORT/POWERPORT .ONCE EMERGENCY 11/20/17 10:45 Active OXYGEN [ED APPLY O2] .ONCE EMERGENCY 11/20/17 10:52 Active CBC W/ AUTO DIFF Stat LAB 11/20/17 10:55 Completed COMPREHENSIVE METABOLIC PANEL Stat LAB 11/20/17 10:55 Received CREATINE KINASE Stat LAB 11/20/17 10:55 Received TROPONIN I Stat LAB 11/20/17 10:55 Received 0.9 % Sodium Chloride [Saline Flush] MEDS 11/20/17 10:45 Active 1 syr IVF PRN PRN Aspirin [Aspirin Chewable] MEDS 11/20/17 10:46 Discontinued 324 mg PO ONCE STA Lorazepam Inj [Ativan] MEDS 11/20/17 11:09 Discontinued 1 mg IVP ONCE STA Nitroglycerin [Nitrostat] MEDS 11/20/17 10:46 Active 0.4 mg SL Q5MIN X 3 DOSES PRN Ondansetron HCl/Pf [Zofran 4 mg/2 ml] MEDS 11/20/17 11:10 Discontinued 4 mg IVP ONCE STA Sodium Chloride 0.9% [Sodium Chloride] 1,000 ml MEDS 11/20/17 10:45 Active IV 100 mls/hr CXR [CHEST, 1V AP ONLY] Stat RADS 11/20/17 10:44 Completed Medications Generic Name Dose Route Start Last Admin Trade Name Freq PRN Reason Stop Dose Admin Sodium Chloride 1,000 mls @ 100 mls/hr 11/20/17 10:45 11/20/17 11:03 Sodium Chloride IV 11/20/17 20:44 100 mls/hr .Q10H STA Administration Nitroglycerin 0.4 mg 11/20/17 10:46 11/20/17 11:02 Nitrostat SL 0.4 mg Q5MIN X 3 DOSES PRN Administration Chest Pain Sodium Chloride 1 syr 11/20/17 10:45 Saline Flush IVF PRN PRN To flush IV Discontinued Medications Generic Name Dose Route Start Last Admin Trade Name Aleksandr PRN Reason Stop Dose Admin Aspirin 324 mg 11/20/17 10:46 11/20/17 11:02 Aspirin Chewable PO 11/20/17 10:47 324 mg ONCE STA Administration Lorazepam 1 mg 11/20/17 11:09 Ativan IVP 11/20/17 11:10 ONCE STA Ondansetron HCl 4 mg 11/20/17 11:10 Zofran 4 Mg/2 Ml IVP 11/20/17 11:11 ONCE STA Vital Signs: Temp Pulse Resp BP Pulse Ox 11/20/17 10:44 97.6 F 79 16 128/78 97 ALEX Risk Score ALEX Risk Score: Risk Score Odds of by 30D 0 0.1 (0.1-0.2) 1 0.3 (0.2-0.3) 2 0.4 (0.3-0.5) 3 0.7 (0.6-0.9) 4 1.2 (1.0-1.5) 5 2.2 (1.9-2.6) 6 3.0 (2.5-3.6) 7 4.8 (3.8-6.1) Departure - Departure Time of Disposition: 11:19 Disposition: TSF SHORT-TRM HOSP Discharge Problem: Chest pain Instructions: Chest Pain (ED) Condition: Good Pt referred to PMD for follow-up: No IPMP verified?: No Allergies/Adverse Reactions: Allergies No Known Allergies Allergy (Verified 07/04/17 13:15) Home Medications: Ambulatory Orders Carvedilol [Coreg] 12.5 mg PO BID 06/28/13 Levothyroxine Sodium [Synthroid] 175 mcg PO DAILY 06/28/13 Metformin HCl 1,000 mg PO BEDTIME 06/28/13 Metformin HCl [Glucophage] 1,500 mg PO DAILY 06/28/13 Insulin Glargine,Hum.rec.anlog [Lantus] 50 unit SUBCUT BEDTIME 09/21/13 Hydrocodone/Acetaminophen [Lortab 10-325 mg Tablet] 1 each PO BID 08/01/15 Atorvastatin Calcium [Lipitor] 10 mg PO BEDTIME 11/12/15 Insulin Lispro [Humalog] 100 unit SQ TIDWM vial 05/24/16 Lisinopril [Zestril] 5 mg PO DAILY 01/11/17 Verapamil HCl [Verapamil ER] 120 mg PO DAILY 01/11/17 Transfer Form Completed: Yes Disposition Discussed With: Patient, Family
--- NOTE | 2017-11-20 11:03 | DI ---
EXAM: Single view chest COMPARISON: Chest Xray from 05/26/2016 HISTORY: Chest pain FINDINGS: Lungs are clear with no lobar consolidation, failure, large effusion or significant atelec tasis. Cardiac and mediastinal silhouettes show no acute abnormality. No acute soft tissue or osseo us abnormalities. IMPRESSION: No active disease.
[2017-11-20] MEDS ORDERED: ATIVAN IVP STA (11:09)
[2017-11-20] MEDS ORDERED: ZOFRAN 4 MG/2 ML IVP STA (11:10)
== END 2017-11-20 11:45 | disposition short-term general hospital (02) ==
LOC: ED 10:41
DX: R07.9 Chest pain, unspecified (principal); I10 Essential (primary) hypertension; R78.5 Finding of other psychotropic drug in blood; E05.90 Thyrotoxicosis, unspecified without thyrotoxic crisis or storm; Z79.899 Other long term (current) drug therapy
CPT/HCPCS: 36415; 80053; 82550; 84439; 84443; 84484; 85025; 93005; 93010; 96360; 96361; 96374; 96375; 99285

== ENCOUNTER 2018-02-23 19:51 | Outpatient (CLI) | END 2018-02-23 19:52 | disposition home or self-care (01) | LOC: LAB 19:51 | PROVIDERS: ATTEND Family Medicine | DX: E05.90 Thyrotoxicosis, unspecified without thyrotoxic crisis or storm (principal); E11.9 Type 2 diabetes mellitus without complications; I10 Essential (primary) hypertension | CPT/HCPCS: 36415; 80053; 84439; 84443; 85025; 93005; 93010 ==

== ENCOUNTER 2018-07-10 09:17 | Outpatient (CLI) | END 2018-07-10 09:18 | disposition home or self-care (01) | LOC: LAB 09:17 | PROVIDERS: ATTEND Family Medicine | DX: E03.9 Hypothyroidism, unspecified (principal) | CPT/HCPCS: 36415; 84443 ==

== ENCOUNTER 2023-02-26 21:06 | Observation (INO) ==
[2023-02-26] MEDS ORDERED: DILAUDID IVP STA (21:53)
[2023-02-26] MEDS ORDERED: ZOFRAN 4 MG/2 ML IVP STA (21:53)
--- NOTE | 2023-02-26 21:54 | ED.PDOC ---
General ED Provider: Dr. ANÍBAL WHITMORE MD Chief Complaint: Abdominal Pain Stated Complaint: Patient with history of pancreatitis in the past x 4 episodes complains of acute onset of severe epigastric pain discomfort which radiates to the left side of his back. The past 4 days. Has persistent nausea, denies vomiting, fever, chills, dyspnea, diaphoresis, vomiting and diarrhea. Patient rates his pain as a 7/10. Time Seen by Provider: 02/26/23 21:48 Mode of Arrival: Walk-In Information Source: Patient Primary Care Provider: MERCEDES COKER Nursing and Triage Documentation Reviewed and Agree: Yes Does patient meet sepsis criteria?: No System Inflammatory Response Syndrome: Not Applicable Sepsis Protocol: For patient's 13 years and over: Temp is 96.8 and below OR 101 and greater Pulse >90 BPM Resp >20/minute Acutely Altered Mental Status Are patient's symptoms suggestive of a new infection, such as: -Pneumonia -Skin, Soft Tissue -Endocarditis -UTI -Bone, Joint Infection -Implantable Device -Acute Abdominal Infection -Wound Infection -Meningitis -Blood Stream Catheter Infection -Unknown GI Complaint Exam Abdominal Pain Complaint/Exam Onset: Sudden Duration: Past 4 days onset of severe epigastric pain Symptoms Are: Still present Timing: Constant Initial Severity: Severe Current Severity: Moderate Location of Pain: Epigastric Radiates To: Reports Back Character: Reports Sharp Aggravating: Reports Movement Alleviating: Reports None Associated Signs and Symptoms: Reports Nausea; Denies Diaphoresis, Fever, Cough, Chest pain, Dizziness, Back pain, Constipation, Blood in stool, Vomiting or Diarrhea Related History: Reports Similar episode AAA Risk Factors: Reports None Cardiac Risk Factors: Reports None Testicular Torsion Risk Factors: Reports None Surgical Obstruction Risk Factors: Reports None Related Surgical History: Reports Cholecystectomy Abdominal Findings: Present Other (Epigastric pain and tenderness) Differential Diagnoses: Bowel Obstruction, Diverticulitis, Gastroenteritis and Pancreatitis Review of Systems Review Of Systems Constitutional: Reports No symptoms; Denies Diaphoresis Eyes: Reports No symptoms; Denies Blindness or Blurred vision Ears, Nose, Mouth, Throat: Reports No symptoms; Denies Ear pain or Ear discharge Respiratory: Reports No symptoms; Denies Cough or Orthopnea Cardiac: Reports No symptoms; Denies Chest pain GI: Reports Abdominal pain and Nausea; Denies Blood streaked bowels, Cons tipated, Diarrhea or Difficulty swallowing : Reports No symptoms; Denies Burning Musculoskeletal: Reports No symptoms; Denies Back pain Neurological: Reports No symptoms; Denies Anxiety, Depressed or Tonic-Clonic seizures Endocrine: Reports No symptoms; Denies Excessive sweating or Unexplained weight gain Hematologic/Lymphatic: Reports No symptoms All Other Systems: Reviewed and Negative [facility] Medical History (Updated 02/27/23 @ 01:29 by ANÍBAL WHITMORE MD) Acute pancreatitis K85.90 - Acute pancreatitis without necrosis or infection, unspecified (ICD- 10) Cardiac arrhythmia I49.9 - Cardiac arrhythmia, unspecified (ICD-10) Hyperlipidemia E78.5 - Hyperlipidemia, unspecified (ICD-10) Hypertension I10 - Essential (primary) hypertension (ICD-10) Hypothyroidism E03.9 - Hypothyroidism, unspecified (ICD-10) Insulin dependent type 2 diabetes mellitus E11.9 - Type 2 diabetes mellitus without complications (ICD-10) Sleep apnea G47.30 - Sleep apnea, unspecified (ICD-10) Social History Smoking and tobacco status: Never smoker Surgical History (Updated 05/19/20 @ 08:50 by [employer] [place]) History of heart surgery Z98.890 - Other specified postprocedural states (ICD-10) Status post tonsillectomy Z90.89 - Acquired absence of other organs (ICD-10) Physical Exam Physical Exam Appearance: Reports Well-appearing Ill-appearing: Not Applicable Pain Distress: Not Applicable Eyes: Reports PARKER, EOMI and Conjunctiva clear; Denies Conjunctiva inflammed ENT: Reports Ears normal and Oropharynx normal; Denies TMs Occluded or Rhinorrhea Neck: Supple Respiratory: Reports Airway patent, Breath sounds clear and Breath sounds equal; Denies Breath sounds diminished or Respirations nonlabored Cardiovascular: Reports RRR, Pulses normal, No rub and No murmur; Denies Irregular rhythm, Tachycardia or Bradycardia GI/: Reports Soft, No masses, Bowel sounds normal and No Organomegaly; Denies Tender Musculoskeletal: Reports Normal strength, ROM intact, No edema, No calf tenderness and Limited ROM; Denies Limited strength Skin: Reports Warm Neurological: Reports Sensation intact, Motor intact and Reflexes intact Psychiatric: Reports Affect appropriate, Mood appropriate and Anxious Interpretation Stem Cleaning Machine Feeder Time of Stem Cleaning Machine Feeder Interpretation: 21:35 Rate: Normal Rhythm: Sinus Ectopy: None EKG Interpretation Time of EKG #1: 21:26 Rate: Normal Rhythm: Sinus Ectopy: None [place]: NL ST Segment: Other Interpretation: Normal sinus rhythm rate of [address] wave changes inferio Re-Evaluation Re-Evaluation Time of Re-Evaluation: 23:56 Status: Improved Vital Signs Stable: Yes Pain Level: Patient given IV Zofran 8 mg/morphine sulfate 8 mg, pain scale improved to Appearance: NAD Lungs: Clear Skin: Warm and Dry Neuro: Alert and Oriented X3 CV: RRR Additional Comments: Pain scale improved to a 6/10 from a 7/10 after morphine sulfate 8 mg IV Physician Notification Case Discussed Physician Notified: Discussed with Dr. Sheriff at 0110 for referral to the hospitalist Time of Notification: 01:10 Comments: Discussed the hospital course all laboratory data and CT scan findings. Physician Notified: Discussed with hospitalist Peggy for observation Time of Notification: 01:15 Critical Care Note Critical Care Note Total Critical Care Time (mins): 0 Course Course 02/26/23 21:53 02/26/23 21:53 Orders, Labs, Meds: Lab Review 02/26/23 02/26/23 02/26/23 21:53 21:56 23:05 WBC 7.09 RBC 5.29 Hgb 15.4 Hct 44.4 MCV 83.9 MCH 29.1 MCHC 34.7 RDW Coeff of Angel 12.3 Plt Count 273 Immature Gran % (Auto) 0.4 Neut % (Auto) 65.5 Lymph % (Auto) 27.5 [place] % (Auto) 5.2 Eos % (Auto) 0.8 Baso % (Auto) 0.6 Neut # (Auto) 4.6 Lymph # (Auto) 2.0 [place] # (Auto) 0.4 Eos # (Auto) 0.1 Baso # (Auto) 0.0 Immature Gran # (Auto) 0.0 Sodium 136.7 Potassium 4.05 Chloride 101.3 Carbon Dioxide 29.9 Anion Gap 9.55 BUN 12.0 Creatinine 1.05 Estimated GFR (MDRD) 77.00 BUN/Creatinine Ratio 11.42 Glucose 310.7 H Calcium 8.98 Total Bilirubin 0.97 AST 22.5 ALT 20.5 Alkaline Phosphatase 92.1 Troponin I < 0.012 Total Protein 7.15 Albumin 4.43 Globulin 2.72 Albumin/Globulin Ratio 1.62 Amylase 50.7 Lipase 63.4 Urine Color Yellow Urine Clarity Clear Urine pH 6.0 Ur Specific [place] 1.025 Urine Protein Negative Urine Glucose (UA) 2+ H Urine Ketones 1+ H Urine Blood Negative Urine Nitrite Negative Urine Bilirubin Negative Urine Urobilinogen 0.2 Ur Leukocyte Esterase Negative 02/27/23 00:25 WBC RBC Hgb Hct MCV MCH MCHC RDW Coeff of Angel Plt Count Immature Gran % (Auto) Neut % (Auto) Lymph % (Auto) [place] % (Auto) Eos % (Auto) Baso % (Auto) Neut # (Auto) Lymph # (Auto) [place] # (Auto) Eos # (Auto) Baso # (Auto) Immature Gran # (Auto) Sodium Potassium Chloride Carbon Dioxide Anion Gap BUN Creatinine Estimated GFR (MDRD) BUN/Creatinine Ratio Glucose Calcium Total Bilirubin AST ALT Alkaline Phosphatase Troponin I < 0.012 Total Protein Albumin Globulin Albumin/Globulin Ratio Amylase Lipase Urine Color Urine Clarity Urine pH Ur Specific [place] Urine Protein Urine Glucose (UA) Urine Ketones Urine Blood Urine Nitrite Urine Bilirubin Urine Urobilinogen Ur Leukocyte Esterase Orders Category Date Time Status EKG-(ED ONLY) Stat CARDIO 02/26/23 21:56 Completed NPO REMINDER: IMAGING ONCE CARE 02/26/23 21:56 Completed TELEMETRY MONITORING TELE CARE 02/26/23 21:56 Active IV [ED IV/MEDIPORT/POWERPORT] .ONCE EMERGENCY 02/26/23 21:56 Active AMYLASE Stat LAB 02/26/23 21:53 Completed CBC W/ AUTO DIFF Stat LAB 02/26/23 21:53 Completed CMP [COMPREHENSIVE METABOLIC PANEL] Stat LAB 02/26/23 21:53 Completed LIPASE Stat LAB 02/26/23 21:53 Completed TROPONIN I Stat LAB 02/26/23 21:56 Completed TROPONIN I Stat LAB 02/27/23 00:25 Completed URINALYSIS C & S IF INDICATED Stat LAB 02/26/23 23:05 Completed 0.9 % Sodium Chloride [Saline Flush] Meds 02/26/23 21:56 Active 1 syr IVF PRN PRN Hydromorphone HCl [Dilaudid 0.5 mg/0.5 ml Syringe] Meds 02/27/23 00:00 Discontinued 1 mg IVP ONCE STA Hydromorphone HCl/Pf [Dilaudid 4 mg/ml Sdv] Meds 02/26/23 21:53 Discontinued 2 mg IVP ONCE STA Mag Hydrox/Al Hydrox/Simeth [Mylanta Susp] Meds 02/27/23 00:11 Discontinued 30 ml PO ONCE STA Morphine Sulfate [Morphine 4 mg/ml Syringe] Meds 02/26/23 22:17 Discontinued 8 mg IVP ONCE STA Ondansetron HCl/Pf [Zofran 4 mg/2 ml] Meds 02/26/23 21:53 Discontinued 8 mg IVP ONCE STA Pantoprazole Sodium [Protonix IV] Meds 02/26/23 21:56 Discontinued 40 mg IVP ONCE STA Sodium Chloride 0.9% [Sodium Chloride] 1,000 ml Meds 02/26/23 21:[address] ABDOMEN/PELVIS W CONTRAST Stat RADS 02/26/23 21:56 Completed Medications Generic Name Dose Route Start Last Admin Trade Name Freq PRN Reason Stop Dose Admin Carvedilol 12.5 mg 02/27/23 08:30 Carvedilol 12.5 Mg Tablet PO BIDWM [facility] Sodium Chloride 1,000 mls @ 125 mls/hr 02/27/23 01:30 Sodium Chloride IV .Q8H [facility] Insulin Human Regular 0 unit 02/27/23 01:37 Insulin Regular, Human 100 Unit/Ml (3ml) Vial SUBCUT PRN PRN Hyperglycemia Protocol Levothyroxine Sodium 150 mcg 02/27/23 06:30 Levothyroxine Sodium 100 Mcg Tablet PO QDAC [facility] Lisinopril 10 mg 02/27/23 09:00 Lisinopril 10 Mg Tablet PO DAILY [facility] Morphine Sulfate 4 mg 02/27/23 01:34 Morphine Sulfate 4 Mg/Ml Syringe IVP Q4H PRN Abdominal Pain Ondansetron HCl 4 mg 02/27/23 01:29 Ondansetron Hcl/Pf 4 Mg/2 Ml Sdv IVP Q4H PRN Nausea vomiting Pantoprazole Sodium 40 mg 02/27/23 09:00 Pantoprazole Sodium 40 Mg Vial IVP DAILY [facility] Sodium Chloride 1 syr 02/26/23 21:56 0.9% Sodium Chloride 10 Ml Disp.Syrin IVF PRN PRN To flush IV Verapamil HCl 180 mg 02/27/23 09:00 Verapamil Hcl 180 Mg Tablet.Er PO DAILY [facility] Discontinued Medications Generic Name Dose Route Start Last Admin Trade Name Freq PRN Reason Stop Dose Admin Al Hydroxide/Mg Hydroxide 30 ml 02/27/23 00:11 02/27/23 00:19 Mag Hydrox/Al Hydrox/Simeth 30 Ml Cup PO 02/27/23 00:12 30 ml ONCE STA Administration Hydromorphone HCl 2 mg 02/26/23 21:53 02/26/23 22:23 Hydromorphone Hcl/Pf 4 Mg/Ml Vial IVP 02/26/23 21:54 Not Given ONCE STA Hydromorphone HCl 1 mg 02/27/23 00:00 02/27/23 00:07 Hydromorphone 0.5 Mg/0.5 Ml Syringe IVP 02/27/23 00:01 1 mg ONCE STA Administration Sodium Chloride 1,000 mls @ 1,000 mls/hr 02/26/23 21:56 02/26/23 22:05 Sodium Chloride IV 02/26/23 22:55 1,000 mls/hr BOLUS STA Administration Morphine Sulfate 8 mg 02/26/23 22:17 02/26/23 22:22 Morphine Sulfate 4 Mg/Ml Syringe IVP 02/26/23 22:18 8 mg ONCE STA Administration Ondansetron HCl 8 mg 02/26/23 21:53 02/26/23 22:06 Ondansetron Hcl/Pf 4 Mg/2 Ml Sdv IVP 02/26/23 21:54 8 mg ONCE STA Administration Pantoprazole Sodium 40 mg 02/26/23 21:56 02/26/23 22:07 Pantoprazole Sodium 40 Mg Vial IVP 02/26/23 21:57 40 mg ONCE STA Administration Vital Signs: Temp Pulse Resp BP Pulse Ox 02/27/23 00:52 79 17 144/81 H 96 02/26/23 21:09 97.5 F L 81 18 0/0 L 96 Discharge Plan Discharge Patient Disposition: PLACED OBSERVATION Discharge Problem: Intractable abdominal pain Did you review [place] PURSE [employer]KER for ALL controlled substances?: No ED Provider: ANÍBAL WHITMORE Condition: Stable Physician Progress Note: MDM History obtained by patient. Patient with history of pancreatitis x4 episodes in the past complains of increasing epigastric pain over the past 4 days. Patient complains of persistent nausea denies vomiting. Patient states epigastric pain is exacerbated after eating. Pain radiates to his back. Laboratory data interpreted by myself lipase 63, amylase is 50, CBC and BMP are normal except for glucose 310. Troponin is 0.012. EKG interpreted by myself normal sinus rhythm rate of 76. There is a positive grade changes fairly noted. There is normal axis noted. There is no prolongation of WI and QT interval. INDINGS: The liver is normal in appearance. The gallbladder is surgically absent. The pancreas, spleen, adrenal glands and kidneys are normal in appearance. The abdominal aorta is normal in appearance. The visualized loops of bowel and appendix are normal in appearance. No free fluid or free air in the abdomen or pelvis. There is a small umbilical hernia containing only fat. The bladder is minimally filled which limits the evaluation. The seminal vesicles and prostate gland are unremarkable. There are degenerative changes in the spine. There is a dorsal column stimulator. 2125-initial EKG interpreted by myself consistent with normal sinus rhythm rate of 76, appears inferior ST wave changes noted. There is no ectopy noted. Normal axis. There is no prolongation of WI QT interval normal. 28-02/2020 3 repeat EKG shows no changes normal sinus rhythm rate of 79. There is no change inferior ST changes noted. 2155-initial troponin less than 0.012 001 7 repeat troponin no change Abdomen pelvic CT with IV contrast consistent with FINDINGS: The liver is normal in appearance. The gallbladder is surgically absent. The pancreas, spleen, adrenal glands and kidneys are normal in appearance. The abdominal aorta is normal in appearance. The visualized loops of bowel and appendix are normal in appearance. No free fluid or free air in the abdomen or pelvis. There is a small umbilical hernia containing only fat. The bladder is minimally filled which limits the evaluation. The seminal vesicles and prostate gland are unremarkable. There are degenerative changes in the spine. There is a dorsal column stimulator. Impression: No acute findings in the abdomen or pelvis. Umbilical hernia as described. Cholecystectomy [address] Coker for observation and refer the patient to the hospitalist. 0015 discussed with hospitalist Kaitlyn for observation Differential diagnosis: 1) peptic ulcer disease 2) intractable abdominal pain 3) acute pancreatitis 4) acute diverticulitis 5) small bowel obstruction Patient states his pain has improved after IV morphine 8 mg followed by Dilaudid 1 mg, Pepcid 20 mg and oral Mylanta 30 mg.
[2023-02-26] MEDS ORDERED: SODIUM CHLORIDE 1,000 ML IV STA (21:56)
[2023-02-26] MEDS ORDERED: PROTONIX IV IVP STA (21:56)
[2023-02-26] MEDS ORDERED: MORPHINE 10 MG/ML SYRINGE IVP STA (22:10)
[2023-02-26 22:13] LABS: BASOPHILS % (AUTO) 0.6 % (0.0-3.0); EOSINOPHILS # (AUTO) 0.1 K/ul (0.0-0.7); EOSINOPHILS % (AUTO) 0.8 % (0.0-7.0); HEMATOCRIT 44.4 % (42.0-52.0); HEMOGLOBIN 15.4 g/dl (14.0-18.0); IMMATURE GRANULOCYTE % (AUTO) 0.4 % (0.0-5.0); LYMPHOCYTES % (AUTO) 27.5 (10.0-50.0); MEAN CORPUSCULAR HEMOGLOBIN 29.1 pg (27.0-31.0); MEAN CORPUSCULAR HGB CONC 34.7 (31.8-35.4); MEAN CORPUSCULAR VOLUME 83.9 fl (80.0-94.0); MONOCYTES # (AUTO) 0.4 K/uL (0.4-2.0); MONOCYTES % (AUTO) 5.2 (0-10); NEUTROPHILS # (AUTO) 4.6 K/ul (2.0-6.9); NEUTROPHILS % (AUTO) 65.5 % (42.2-75.2); PLATELET COUNT 273 10^3/uL (140-440); RDW COEFFICIENT OF VARIATION 12.3 % (11.6-14.8); RED BLOOD COUNT 5.29 10^6/ul (4.70-6.10); WHITE BLOOD COUNT 7.09 K/ul (4.2-10.2)
[2023-02-26] MEDS ORDERED: MORPHINE 4 MG/ML SYRINGE IVP STA (22:17)
[2023-02-26 22:40] LABS: ALANINE AMINOTRANSFERASE 20.5 U/L (0-50); ALBUMIN 4.43 g/dL (3.5-5.0); ALKALINE PHOSPHATASE 92.1 U/L (38-126); AMYLASE 50.7 U/L (30-110); ASPARTATE AMINO TRANSFERASE 22.5 U/L (17-59); BILIRUBIN,TOTAL 0.97 mg/dL (0.2-1.3); CALCIUM 8.98 mg/dL (8.4-10.2); CARBON DIOXIDE 29.9 mmol/L (22-30.0); CHLORIDE 101.3 mmol/L (98-107); CREATININE 1.05 mg/dL (0.60-1.10); GLUCOSE 310.7 mg/dL (74-106); LIPASE 63.4 U/L (23-300); POTASSIUM 4.05 mmol/L (3.5-5.1); SODIUM 136.7 mmol/L (134.5-145); TOTAL PROTEIN 7.15 g/dL (6.3-8.2)
[2023-02-26 23:18] LABS: BILIRUBIN,URINE Negative (NEGATIVE); CLARITY,URINE Clear (CLEAR); COLOR,URINE Yellow (YELLOW); GLUCOSE, URINE (UA) 2+ (NEGATIVE); KETONES,URINE 1+ (NEGATIVE); LEUKOCYTE ESTERASE ,URINE Negative (NEGATIVE); NITRITE,URINE Negative (NEGATIVE); PROTEIN,URINE Negative (NEGATIVE); URINE, BLOOD Negative (NEGATIVE); UROBILINOGEN,URINE 0.2 (0.2)
[2023-02-27] MEDS ORDERED: DILAUDID 0.5 MG/0.5 ML SYRINGE IVP STA
[2023-02-27] MEDS ORDERED: MYLANTA SUSP PO STA (00:11)
--- NOTE | 2023-02-27 00:25 | CT ---
EXAM: CT OF THE ABDOMEN AND PELVIS WITH IV CONTRAST. HISTORY: Severe epigastric pain. History of pancreatitis. PROCEDURE: After the intravenous injection of contrast contiguous axial CT images of the abdomen and pelvis were obtained with coronal and sagittal reformats. All CT scans are performed using dose opt imization techniques as appropriate to a performed exam including the following: Automated exposure c ontrol, Adjustment of the mA and/or kV according to patient size, Use of iterative reconstruction moose hnique. FINDINGS: The liver is normal in appearance. The gallbladder is surgically absent. The pancreas, sp kassie, adrenal glands and kidneys are normal in appearance. The abdominal aorta is normal in appearan ce. The visualized loops of bowel and appendix are normal in appearance. No free fluid or free air in the abdomen or pelvis. There is a small umbilical hernia containing only fat. The bladder is min imally filled which limits the evaluation. The seminal vesicles and prostate gland are unremarkable. There are degenerative changes in the spine. There is a dorsal column stimulator. Impression: No acute findings in the abdomen or pelvis. Umbilical hernia as described. Cholecystectomy. All CT scans are performed using dose optimization techniques as appropriate to the performed exam an d include at least one of the following: Automated exposure control, adjustment of the mA and/or kV according t o size, and the use of iterative reconstruction technique.
[2023-02-27] MEDS: SODIUM CHLORIDE 1,000 ML IV SCH ×3 (01:56→17:37)
[2023-02-27] MEDS: ZOFRAN 4 MG/2 ML IVP PRN (02:29)
[2023-02-27 03:21] VITALS: BMI 46.3
[2023-02-27] MEDS: MORPHINE 4 MG/ML SYRINGE IVP PRN ×2 (04:06→08:21)
[2023-02-27] MEDS: SYNTHROID PO SCH (05:49)
[2023-02-27] MEDS ORDERED: REGLAN IVP ONE (06:34)
[2023-02-27 06:43] LABS: BASOPHILS % (AUTO) 0.5 % (0.0-3.0); EOSINOPHILS % (AUTO) 0.5 % (0.0-7.0); HEMATOCRIT 42.7 % (42.0-52.0); HEMOGLOBIN 14.4 g/dl (14.0-18.0); IMMATURE GRANULOCYTE # (AUTO) 0.1 (0.0-1.0); IMMATURE GRANULOCYTE % (AUTO) 0.8 % (0.0-5.0); LYMPHOCYTES # (AUTO) 1.5 K/uL (0.60-3.4); LYMPHOCYTES % (AUTO) 23.5 (10.0-50.0); MEAN CORPUSCULAR HEMOGLOBIN 28.7 pg (27.0-31.0); MEAN CORPUSCULAR HGB CONC 33.7 (31.8-35.4); MEAN CORPUSCULAR VOLUME 85.2 fl (80.0-94.0); MONOCYTES # (AUTO) 0.3 K/uL (0.4-2.0); MONOCYTES % (AUTO) 4.7 (0-10); NEUTROPHILS # (AUTO) 4.3 K/ul (2.0-6.9); PLATELET COUNT 244 10^3/uL (140-440); RDW COEFFICIENT OF VARIATION 12.5 % (11.6-14.8); RED BLOOD COUNT 5.01 10^6/ul (4.70-6.10); WHITE BLOOD COUNT 6.18 K/ul (4.2-10.2)
[2023-02-27 06:55] LABS: ALANINE AMINOTRANSFERASE 123.9 U/L (0-50); ALBUMIN 4.04 g/dL (3.5-5.0); ALKALINE PHOSPHATASE 136.7 U/L (38-126); ASPARTATE AMINO TRANSFERASE 255.1 U/L (17-59); BILIRUBIN,TOTAL 2.11 mg/dL (0.2-1.3); BLOOD UREA NITROGEN 10.9 mg/dL (9-20); CALCIUM 8.28 mg/dL (8.4-10.2); CARBON DIOXIDE 31.4 mmol/L (22-30.0); CHLORIDE 99.9 mmol/L (98-107); CHOLESTEROL 158.8 mg/dL (0-200); CREATININE 0.97 mg/dL (0.60-1.10); GLUCOSE 377.1 mg/dL (74-106); HDL CHOLESTEROL 43.2 mg/dL (35-60); LDL CHOLESTEROL,CALCULATED 84 mmol/L; POTASSIUM 4.91 mmol/L (3.5-5.1); SODIUM 134.9 mmol/L (134.5-145); TOTAL PROTEIN 6.42 g/dL (6.3-8.2); TRIGLYCERIDES 156.7 mg/dL (0-150); VLDL CHOLESTEROL 31 mg/dL (2-30)
[2023-02-27 07:14] LABS: TROPONIN I < 0.012 ng/ml (0.0000-0.120)
[2023-02-27] MEDS: COREG PO SCH ×2 (08:16→17:03)
[2023-02-27] MEDS: CALAN SR PO SCH (08:17)
[2023-02-27] MEDS: ZESTRIL PO SCH (08:17)
[2023-02-27] MEDS: PROTONIX IV IVP SCH (08:18)
[2023-02-27] MEDS ORDERED: MYLANTA SUSP PO PRN (08:25)
[2023-02-27] MEDS: HUMULIN R SUBCUT PRN ×3 (08:29→20:56)
[2023-02-27] MEDS: PEPCID IVP SCH ×2 (08:47→20:52)
--- NOTE | 2023-02-27 10:21 | PCM ---
Date of Service Date Seen by Provider: 02/27/23 Time Seen by Provider: 08:30 Admit Day/Time Admission Date: 02/27/23 Admission Time: 01:29 Reason for Admission Chief Complaint: INTRACTABLE ABDOMINAL PAIN Hospital Provider Hospital Provider: LANE HART PA-C, [facility] Primary Care Physician Primary Care Physician: MERCEDES TATE History of Present Illness History of Present Illness: Patient is a 42-year-old male with past medical history of pancreatitis, hyperlipidemia, hypertension, hypothyroidism, DM insulin dependent, sleep apnea who presented to ER with a 4-day history of epigastric pain. He states that he sometimes has this epigastric pain but it usually does last for about an hour and go away. He feels eating makes it worse. He denies NSAID use, alcohol use, smoking or vaping. He states that it hurts in a bandlike fashion towards his left upper quadrant. Feels a bit like a boring hole in his stomach. Denies chest pain or right upper quadrant pain. No changes in his bowel movements. No fever. He has been trying [id number] Tums and famotidine with minimal effect. He states that the pain has been fairly constant for the last few days but waxing and waning in intensity. No vomiting. In the ER he had a CT abdomen pelvis with contrast that was negative. Labs were unremarkable. Lipase specifically was normal. Patient states the last time he had pain like this was when he had pancreatitis. He has a history of cholecystectomy. He was given Dilaudid, morphine, Zofran, Reglan and Protonix. He is feeling better this morning but still having nausea and discomfort. He feels that Reglan helped his nausea the most. He was admitted to [facility]. Patient states that he saw an director of enterprise architecture out of state before moving to this area in August that determined his diabetes was autoimmune and placed him on insulin. He has been using an insulin pump but having difficulties obtaining the medications for it due to insurance. Regarding "cardiac arrhythmia" in his history he states that he was having issues with bradycardia and vasovagal symptoms. He saw a receiver who did a loop recorder. They offered a pacemaker but ultimately decided to push fluids and his symptoms have improved. Case Discussed With Case Discussed With: Patient's case was discussed with the ER Physicians, Dr. Blanc. [facility] Medical History Acute pancreatitis K85.90 - Acute pancreatitis without necrosis or infection, unspecified (ICD- 10) Cardiac arrhythmia I49.9 - Cardiac arrhythmia, unspecified (ICD-10) Hyperlipidemia E78.5 - Hyperlipidemia, unspecified (ICD-10) Hypertension I10 - Essential (primary) hypertension (ICD-10) Hypothyroidism E03.9 - Hypothyroidism, unspecified (ICD-10) Insulin dependent type 2 diabetes mellitus E11.9 - Type 2 diabetes mellitus without complications (ICD-10) Sleep apnea G47.30 - Sleep apnea, unspecified (ICD-10) Surgical History (Updated 02/27/23 @ 10:[address] HART PA-C) History of cholecystectomy Z90.49 - Acquired absence of other specified parts of digestive tract (ICD- 10) History of heart surgery Z98.890 - Other specified postprocedural states (ICD-10) Status post tonsillectomy Z90.89 - Acquired absence of other organs (ICD-10) Family History Mother Diabetes COPD (chronic obstructive pulmonary disease) Asthma Rheumatoid arthritis Heart attack Hypertension Pulmonary hypertension Hyperthyroidism FATHER Hypertension Hypothyroidism Dry mouth and eyes Social History (Updated 02/27/23 @ 10:[address] HART PA-C) Smoking and tobacco status: Never smoker Alcohol intake: never Substance use type: does not use Current occupational status: employed Current occupation: RN Allergies Allergies Allergy/AdvReac Type Severity Reaction Status Date / Time No Known Allergies Allergy Verified 02/26/23 21:13 Current Medications Home Medications insulin lispro 100 unit/mL subcutaneous solution (Humalog U-100 Insulin) 130 unit SQ TIDWM 05/24/16 [History Confirmed 02/26/23 Last Taken Unknown] lisinopril 5 mg tablet (Zestril) 10 mg PO DAILY 01/11/17 [History Confirmed 02/26/23 Last Taken Unknown] atorvastatin 20 mg tablet 20 mg PO DAILY 02/26/23 [History Confirmed 02/26/23 Last Taken Unknown] carvedilol 12.5 mg tablet 12.5 mg PO BID 02/26/23 [History Confirmed 02/26/[address] Taken Unknown] levothyroxine 150 mcg tablet 150 mcg PO DAILY 02/26/23 [History Confirmed 02/26/23 Last Taken Unknown] verapamil 180 mg tablet,extended release 180 mg PO DAILY 02/26/23 [History Conf irmed 02/26/23 Last Taken Unknown] Home Al Hydroxide/Mg Hydroxide (Mag Hydrox/Al Hydrox/Simeth 30 Ml Cup) 30 ml PO DAILY PRN PRN Reason: Heartburn Last Admin: 02/27/23 08:47 Dose: 30 ml Carvedilol (Carvedilol 12.5 Mg Tablet) 12.5 mg PO BIDWM [facility] Last Admin: 02/27/23 08:16 Dose: 12.5 mg Famotidine (Famotidine Inj 20 Mg/2 Ml Vial) 20 mg IVP Q12HR [facility] Last Admin: 02/27/23 08:47 Dose: 20 mg Sodium Chloride (Sodium Chloride) 1,000 mls @ 125 mls/hr IV .Q8H [facility] Last Admin: 02/27/23 09:43 Dose: 125 mls/hr Insulin Glargine (Insulin Glargine,Hum.Rec.Anlog 100 Units/Ml) 10 unit SUBCUT DAILY [facility] Insulin Human Regular (Insulin Regular, Human 100 Unit/Ml (3ml) Vial) 0 unit SUBCUT PRN PRN; Protocol PRN Reason: Hyperglycemia Last Admin: 02/27/23 08:29 Dose: 8 unit Levothyroxine Sodium (Levothyroxine Sodium 100 Mcg Tablet) 150 mcg PO QDAC [facility] Last Admin: 02/27/23 05:49 Dose: 150 mcg Lisinopril (Lisinopril 10 Mg Tablet) 10 mg PO DAILY [facility] Last Admin: 02/27/23 08:17 Dose: 10 mg Morphine Sulfate (Morphine Sulfate 4 Mg/Ml Syringe) 4 mg IVP Q4H PRN PRN Reason: Abdominal Pain Last Admin: 02/27/23 08:21 Dose: 4 mg Ondansetron HCl (Ondansetron Hcl/Pf 4 Mg/2 Ml Sdv) 4 mg IVP Q4H PRN PRN Reason: Nausea vomiting Last Admin: 02/27/23 02:29 Dose: 4 mg Pantoprazole Sodium (Pantoprazole Sodium 40 Mg Vial) 40 mg IVP DAILY [facility] Last Admin: 02/27/23 08:18 Dose: 40 mg Sodium Chloride (0.9% Sodium Chloride 10 Ml Disp.Syrin) 1 syr IVF PRN PRN PRN Reason: To flush IV Verapamil HCl (Verapamil Hcl 180 Mg Tablet.Er) 180 mg PO DAILY JAUN Last Admin: 02/27/23 08:17 Dose: 180 mg Discontinued Medications Al Hydroxide/Mg Hydroxide (Mag Hydrox/Al Hydrox/Simeth 30 Ml Cup) 30 ml PO ONCE STA Stop: 02/27/23 00:12 Last Admin: 02/27/23 00:19 Dose: 30 ml Hydromorphone HCl (Hydromorphone Hcl/Pf 4 Mg/Ml Vial) 2 mg IVP ONCE STA Stop: 02/26/23 21:54 Last Admin: 02/26/23 22:23 Dose: Not Given Hydromorphone HCl (Hydromorphone 0.5 Mg/0.5 Ml Syringe) 1 mg IVP ONCE STA Stop: 02/27/23 00:01 Last Admin: 02/27/23 00:07 Dose: 1 mg Sodium Chloride (Sodium Chloride) 1,000 mls @ 1,000 mls/hr IV BOLUS STA Stop: 02/26/23 22:55 Last Admin: 02/26/23 22:05 Dose: 1,000 mls/hr Metoclopramide HCl (Metoclopramide Hcl 10 Mg/2 Ml) 5 mg IVP ONCE ONE Stop: 02/27/23 06:35 Last Admin: 02/27/23 07:14 Dose: 5 mg Morphine Sulfate (Morphine Sulfate 4 Mg/Ml Syringe) 8 mg IVP ONCE STA Stop: 02/26/23 22:18 Last Admin: 02/26/23 22:22 Dose: 8 mg Ondansetron HCl (Ondansetron Hcl/Pf 4 Mg/2 Ml Sdv) 8 mg IVP ONCE STA Stop: 02/26/23 21:54 Last Admin: 02/26/23 22:06 Dose: 8 mg Pantoprazole Sodium (Pantoprazole Sodium 40 Mg Vial) 40 mg IVP ONCE STA Stop: 02/26/23 21:57 Last Admin: 02/26/23 22:07 Dose: 40 mg Sodium Chloride (0.9% Sodium Chloride 10 Ml Disp.Syrin) 1 syr IVF Q8HR JAUN Last Admin: 02/27/23 05:53 Dose: Not Given Review of Systems Constitutional: Denies Fever or Weakness Head: Reports Normocephalic and Atraumatic Eyes: Denies Vision Changes Ears: Denies Pain or Drainage Nose: Denies Post Nasal Drip Mouth: Denies Sores Throat: Denies Sore Throat or Difficulty Swallowing Cardiovascular: Denies Chest pain, Chest Pressure or Edema Respiratory: Denies Cough or Shortness of air Gastrointestinal: Reports Nausea, Reflux and Abdominal pain (epigastric); Denies Vomiting, Diarrhea, Black Tarry Stools or Melena Genitourinary: Denies Dysuria Dermatologic: Denies Rashes Neurological: Denies Headache, Dizziness, Syncope or Weakness Physical examination Most Recent Vital Signs: Most Recent Vital Signs Temperature 97.8 F 02/27/23 06:00 Temperature Source Temporal Artery Scan 02/27/23 06:00 Temperature Source Infrared 02/26/23 21:09 Pulse Rate 59 L 02/27/23 06:00 Respiratory Rate 16 02/27/23 06:00 Blood Pressure 128/83 02/27/23 06:00 Blood Pressure Mean 98 02/27/23 06:00 Blood Pressure Left Arm 143/85 02/27/23 01:51 Blood Pressure Location Right Arm 02/27/23 06:00 Blood Pressure Position Supine 02/27/23 06:00 O2 Sat by Pulse Oximetry 96 02/27/23 06:00 Oxygen Delivery Method Room Air 02/27/23 07:43 Height 5 ft 9 in 02/27/23 01:51 Weight 313 lb 8 oz 02/27/23 01:51 Appearance: Positive Well-appearing, Well-nourished, No Apparent Distress and Alert and Oriented x3 Skin: Positive [place], Warm, Good Turgor and Good Color; Negative Rashes HEENT: Positive Normocephalic and Atraumatic Chest/Lungs: Positive Symmetrical With Equal Breath Sounds and Clear to Auscultation Bilaterally; Negative Rales, Rhonci or Wheezes Heart: Positive RRR GI/: Positive Soft, Bowel Sounds Normal and Tender (+epigastric, LUQ pain with palpation. No RUQ pain. ) Extremities: Negative Edema Neurological: Positive Cranial Nerves Intact, Alert, Oriented and Muscle Strength 5/5 in Upper and Lower Extremities Bilaterally Psychiatric: Positive Oriented x4, Appropriate Mood, Appropriate Affect, Normal Judgement and Normal Insight Labs This Visit Labs This Visit: Labs This Visit 02/26/23 02/26/23 02/26/23 21:53 21:56 23:05 WBC 7.09 RBC 5.29 Hgb 15.4 Hct 44.4 MCV 83.9 MCH 29.1 MCHC 34.7 RDW Coeff of Angel 12.3 Plt Count 273 Immature Gran % (Auto) 0.4 Neut % (Auto) 65.5 Lymph % (Auto) 27.5 [place] % (Auto) 5.2 Eos % (Auto) 0.8 Baso % (Auto) 0.6 Neut # (Auto) 4.6 Lymph # (Auto) 2.0 [place] # (Auto) 0.4 Eos # (Auto) 0.1 Baso # (Auto) 0.0 Immature Gran # (Auto) 0.0 Sodium 136.7 Potassium 4.05 Chloride 101.3 Carbon Dioxide 29.9 Anion Gap 9.55 BUN 12.0 Creatinine 1.05 Estimated GFR (MDRD) 77.00 BUN/Creatinine Ratio 11.42 Glucose 310.7 H Hemoglobin A1c Calcium 8.98 Total Bilirubin 0.97 AST 22.5 ALT 20.5 Alkaline Phosphatase 92.1 Troponin I < 0.012 Total Protein 7.15 Albumin 4.43 Globulin 2.72 Albumin/Globulin Ratio 1.62 Triglycerides Cholesterol LDL Cholesterol, Calc VLDL Cholesterol HDL Cholesterol Cholesterol/HDL Ratio Amylase 50.7 Lipase 63.4 TSH Urine Color Yellow Urine Clarity Clear Urine pH 6.0 Ur Specific Brady 1.025 Urine Protein Negative Urine Glucose (UA) 2+ H Urine Ketones 1+ H Urine Blood Negative Urine Nitrite Negative Urine Bilirubin Negative Urine Urobilinogen 0.2 Ur Leukocyte Esterase Negative 02/27/23 02/27/23 00:25 06:36 WBC 6.18 RBC 5.01 Hgb 14.4 Hct 42.7 MCV 85.2 MCH 28.7 MCHC 33.7 RDW Coeff of Angel 12.5 Plt Count 244 Immature Gran % (Auto) 0.8 Neut % (Auto) 70.0 Lymph % (Auto) 23.5 [place] % (Auto) 4.7 Eos % (Auto) 0.5 Baso % (Auto) 0.5 Neut # (Auto) 4.3 Lymph # (Auto) 1.5 [place] # (Auto) 0.3 L Eos # (Auto) 0.0 Baso # (Auto) 0.0 Immature Gran # (Auto) 0.1 Sodium 134.9 Potassium 4.91 Chloride 99.9 Carbon Dioxide 31.4 H Anion Gap 8.51 BUN 10.9 Creatinine 0.97 Estimated GFR (MDRD) 84.00 BUN/Creatinine Ratio 11.23 Glucose 377.1 H D Hemoglobin A1c 8.22 H Calcium 8.28 L Total Bilirubin 2.11 H AST 255.1 H D ALT 123.9 H D Alkaline Phosphatase 136.7 H D Troponin I < 0.012 < 0.012 Total Protein 6.42 Albumin 4.04 Globulin 2.38 Albumin/Globulin Ratio 1.69 Triglycerides 156.7 H Cholesterol 158.8 LDL Cholesterol, Calc 84 VLDL Cholesterol 31 H HDL Cholesterol 43.2 Cholesterol/HDL Ratio 3.7 L Amylase Lipase 74.0 TSH 5.920 H Urine Color Urine Clarity Urine pH Ur Specific Brady Urine Protein Urine Glucose (UA) Urine Ketones Urine Blood Urine Nitrite Urine Bilirubin Urine Urobilinogen Ur Leukocyte Esterase Imaging Imaging: EXAM: CT OF THE ABDOMEN AND PELVIS WITH IV CONTRAST. HISTORY: Severe epigastric pain. History of pancreatitis. PROCEDURE: After the intravenous injection of contrast contiguous axial CT images of the abdomen and pelvis were obtained with coronal and sagittal reformats. All CT scans are performed using dose optimization techniques as appropriate to a performed exam including the following: Automated exposure control, Adjustment of the mA and/or kV according to patient size, Use of iterative reconstruction technique. FINDINGS: The liver is normal in appearance. The gallbladder is surgically absent. The pancreas, spleen, adrenal glands and kidneys are normal in appearance. The abdominal aorta is normal in appearance. The visualized loops of bowel and appendix are normal in appearance. No free fluid or free air in the abdomen or pelvis. There is a small umbilical hernia containing only fat. The bladder is minimally filled which limits the evaluation. The seminal vesicles and prostate gland are unremarkable. There are degenerative changes in the spine. There is a dorsal column stimulator. Impression: No acute findings in the abdomen or pelvis. Umbilical hernia as described. Cholecystectomy. Review Statement Review Statement: I have independently reviewed and interpreted the labs/EKGs/imaging that were ordered by the ER provider. I have reviewed all outside records that are available currently in our EMR including imaging/notes/labs from previous visits. Plan Plan: A&P: 1. Intractable abdominal pain in setting of likely gastritis - Zofran and reglan IV prn for nausea. Morphine prn for pain. Protonix IV q24hrs and pepcid IV q12hrs. Add mylanta. Unable to do GI cocktail at this time due to no lidocaine. Clear liquids. 2. Gastritis vs PUD - Patient does not take a daily PPI. Will benefit once discharged. Consider outpatient endoscopy if not improving. Plan as above. 3. Elevated liver enzymes - RUQ US tomorrow, pt has hx of cholecystectomy. Unlikely choledocho. Hep panel ordered. Repeat CMP in AM following fluids. 4. DM, insulin dependent - Pt has pump but has difficulty obtaining medications for it. Will do lantus 10 U daily and sliding scale. Pt is unsure of specific total units per day. 5. Hypertension - Continue home medications 6. Hyperlipidemia - Continue home medications 7. Hypothyroidism - Continue home levothyroxine. DVT Prophylaxis: Lovenox Time Spent: Greater than 80 minutes spent with patient, 50% of the time spent with this patient was devoted to counseling and coordination of care. [facility] minutes spent discussing advance care planning. FULL CODE. Admit to: OBS Discussed Plan of Care with Dr. Jed Roman. Medications Medication Orders: Medications Ordered Category Date Time Status 0.9 % Sodium Chloride [Saline Flush] Meds 02/26/23 21:56 Active 1 syr IVF PRN PRN Carvedilol [Coreg] Meds 02/27/23 08:30 Active 12.5 mg PO BIDWM Famotidine Inj [Pepcid] Meds 02/27/23 09:00 Active 20 mg IVP Q12HR Insulin Regular, Human [Humulin R] Meds 02/27/23 01:37 Active See Protocol SUBCUT PRN PRN Levothyroxine Sodium [Synthroid] Meds 02/27/23 06:30 Active 150 mcg PO QDAC Lisinopril [Zestril] Meds 02/27/23 09:00 Active 10 mg PO DAILY Mag Hydrox/Al Hydrox/Simeth [Mylanta Susp] Meds 02/27/23 08:25 Active 30 ml PO DAILY PRN Morphine Sulfate [Morphine 4 mg/ml Syringe] Meds 02/27/23 01:34 Active 4 mg IVP Q4H PRN Ondansetron HCl/Pf [Zofran 4 mg/2 ml] Meds 02/27/23 01:29 Active 4 mg IVP Q4H PRN Pantoprazole Sodium [Protonix IV] Meds 02/27/23 09:00 Active 40 mg IVP DAILY Sodium Chloride 0.9% [Sodium Chloride] 1,000 ml Meds 02/27/23 01:30 Active IV 125 mls/hr Verapamil HCl [Calan Sr] Meds 02/27/23 09:00 Active 180 mg PO DAILY
[2023-02-27] MEDS: LOVENOX SUBCUT SCH (12:00)
[2023-02-27] MEDS: LANTUS SUBCUT SCH (12:05)
[2023-02-27] MEDS: REGLAN IVP PRN (12:08)
[2023-02-28] MEDS: SODIUM CHLORIDE 1,000 ML IV SCH ×2 (01:33→09:03)
[2023-02-28 05:20] LABS: BASOPHILS % (AUTO) 0.7 % (0.0-3.0); EOSINOPHILS # (AUTO) 0.1 K/ul (0.0-0.7); EOSINOPHILS % (AUTO) 2.4 % (0.0-7.0); HEMATOCRIT 39.7 % (42.0-52.0); HEMOGLOBIN 13.3 g/dl (14.0-18.0); IMMATURE GRANULOCYTE % (AUTO) 0.7 % (0.0-5.0); LYMPHOCYTES % (AUTO) 37.4 (10.0-50.0); MEAN CORPUSCULAR HEMOGLOBIN 28.8 pg (27.0-31.0); MEAN CORPUSCULAR HGB CONC 33.5 (31.8-35.4); MEAN CORPUSCULAR VOLUME 85.9 fl (80.0-94.0); MONOCYTES # (AUTO) 0.4 K/uL (0.4-2.0); MONOCYTES % (AUTO) 7.4 (0-10); NEUTROPHILS # (AUTO) 2.8 K/ul (2.0-6.9); NEUTROPHILS % (AUTO) 51.4 % (42.2-75.2); PLATELET COUNT 225 10^3/uL (140-440); RDW COEFFICIENT OF VARIATION 12.6 % (11.6-14.8); RED BLOOD COUNT 4.62 10^6/ul (4.70-6.10); WHITE BLOOD COUNT 5.37 K/ul (4.2-10.2)
[2023-02-28 05:32] LABS: ALANINE AMINOTRANSFERASE 133.3 U/L (0-50); ALBUMIN 3.4 g/dL (3.5-5.0); ALKALINE PHOSPHATASE 120.9 U/L (38-126); ASPARTATE AMINO TRANSFERASE 89.8 U/L (17-59); BILIRUBIN,TOTAL 0.76 mg/dL (0.2-1.3); BLOOD UREA NITROGEN 7.8 mg/dL (9-20); CALCIUM 7.66 mg/dL (8.4-10.2); CARBON DIOXIDE 32.5 mmol/L (22-30.0); CHLORIDE 102.5 mmol/L (98-107); CREATININE 1.03 mg/dL (0.60-1.10); GLUCOSE 179.8 mg/dL (74-106); POTASSIUM 3.97 mmol/L (3.5-5.1); SODIUM 136.4 mmol/L (134.5-145); TOTAL PROTEIN 5.8 g/dL (6.3-8.2)
[2023-02-28] MEDS: SYNTHROID PO SCH (05:49)
[2023-02-28] MEDS: HUMULIN R SUBCUT PRN (05:52)
[2023-02-28] MEDS: PROTONIX IV IVP SCH (09:05)
[2023-02-28] MEDS: LOVENOX SUBCUT SCH (09:09)
[2023-02-28] MEDS: PEPCID IVP SCH (09:16)
[2023-02-28] MEDS: MORPHINE 4 MG/ML SYRINGE IVP PRN (10:08)
[2023-02-28] MEDS: ZOFRAN 4 MG/2 ML IVP PRN (10:08)
[2023-02-28] MEDS: REGLAN IVP PRN (10:15)
[2023-02-28] MEDS: CALAN SR PO SCH (10:16)
[2023-02-28] MEDS: COREG PO SCH (10:16)
[2023-02-28] MEDS: ZESTRIL PO SCH (10:16)
[2023-02-28 10:21] VITALS: BP 144/93; RESP 20; TEMP 98.7
--- NOTE | 2023-02-28 10:30 | US ---
EXAM: ULTRASOUND ABDOMEN COMPLETE HISTORY: Elevated liver function test COMPARISON: CT 02/26/2023 TECHNIQUE: Complete ultrasound abdomen was FINDINGS: Pancreas poorly visualized secondary to shadowing artifact. Portions of the liver obscure d secondary to shadowing artifact. Liver increased in echogenicity. Main portal vein patent with di rection of flow. Patient status post cholecystectomy. No biliary duct dilation with common bile vinay t measuring 0.4 cm. Right kidney measures 11.1 cm in length. Left kidney measures 11.4 cm in length . No hydronephrosis. Spleen normal in echogenicity. Spleen, probably mildly enlarged, measuring 12 .3 cm, likely technically foreshortened. Visualized portion aorta and inferior vena cava appear norm al. IMPRESSION: 1. Echogenic liver may relate to hepatic steatosis and/or hepatic parenchymal disease. 2. Status post cholecystectomy. No biliary duct dilation. 3. Probable splenomegaly.
--- NOTE | 2023-02-28 11:12 | DCSUM ---
Admission Date Admission Date: 02/27/23 Discharge Date Discharge Date: 02/28/23 Admission Diagnosis Admission Diagnosis: Intractable Abdominal Pain Discharge Diagnosis Discharge Diagnosis: Gastritis, Hepatic Steatosis Hospital Provider Hospital Provider: LANE HART PA-C, [facility] Primary Care Physician Primary Care Physician: MERCEDES TATE Summary of History and Physical Summary of History and Physical: Patient is a 42-year-old male with past medical history of pancreatitis, hyperlipidemia, hypertension, hypothyroidism, DM insulin dependent, sleep apnea who presented to ER with a 4-day history of epigastric pain. He states that he sometimes has this epigastric pain but it usually does last for about an hour and go away. He feels eating makes it worse. He denies NSAID use, alcohol use, smoking or vaping. He states that it hurts in a bandlike fashion towards his left upper quadrant. Feels a bit like a boring hole in his stomach. Denies chest pain or right upper quadrant pain. No changes in his bowel movements. No fever. He has been trying [id number] Tums and famotidine with minimal effect. He states that the pain has been fairly constant for the last few days but waxing and waning in intensity. No vomiting. In the ER he had a CT abdomen pelvis with contrast that was negative. Labs were unremarkable. Lipase specifically was normal. Patient states the last time he had pain like this was when he had pancreatitis. He has a history of cholecystectomy. He was given Dilaudid, morphine, Zofran, Reglan and Protonix. He is feeling better this morning but still having nausea and discomfort. He feels that Reglan helped his nausea the most. He was admitted to [facility], [place]. Patient states that he saw an right of way agent [place] of state before moving to this area in August that determined his diabetes was autoimmune and placed him on insulin. He has been using an insulin pump but having difficulties obtaining the medications for it due to insurance. Regarding "cardiac arrhythmia" in his history he states that he was having issues with bradycardia and vasovagal symptoms. He saw a change management lead who did a loop recorder. They offered a pacemaker but ultimately decided to push fluids and his symptoms have improved. 1. Intractable abdominal pain in setting of likely gastritis - Zofran and reglan IV prn for nausea. Morphine prn for pain. Protonix IV q24hrs and pepcid IV q12hrs. Add [place]. Unable to do GI cocktail at this time due to no lidocaine. Clear liquids. 2. Gastritis vs PUD - Patient does not take a daily PPI. Will benefit once discharged. Consider outpatient endoscopy if not improving. Plan as above. 3. Elevated liver enzymes - RUQ US tomorrow, pt has hx of cholecystectomy. Unlikely choledocho. Hep panel ordered. Repeat CMP in AM following fluids. 4. DM, insulin dependent - Pt has pump but has difficulty obtaining medications for it. Will do lantus 10 U daily and sliding scale. Pt is unsure of specific total units per day. 5. Hypertension - Continue home medications 6. Hyperlipidemia - Continue home medications 7. Hypothyroidism - Continue home levothyroxine. Hospital Course Subjective: No events overnight. No vomiting or nausea. Pain improved. Tolerated PO intake prior to being NPO at midnight. Has received IV fluids in addition to protonix and pepcid. Zofran and reglan as needed for nausea. Appearance: Pleasant, No Apparent Distress, Alert and Well-appearing HEENT: MMM and Supple CVS: No Murmur and No Rubs Abdomen: Soft, Non-Tender, No Distention and Other (epigastric tenderness) Respiratory: No Dyspnea Extremities: No Edema Vital Signs: Most Recent Vital Signs Temperature 98.7 F 02/28/23 10:00 Temperature Source Oral 02/28/23 10:00 Temperature Source Infrared 02/26/23 21:09 Pulse Rate 68 02/28/23 10:00 Respiratory Rate 20 02/28/23 10:00 Blood Pressure 144/93 H 02/28/23 10:00 Blood Pressure Mean 110 02/28/23 10:00 Blood Pressure Left Arm 143/85 02/27/23 01:51 Blood Pressure Location Right Arm 02/28/23 10:00 Blood Pressure Position Supine 02/28/23 10:00 O2 Sat by Pulse Oximetry 93 L 02/28/23 10:00 Oxygen Delivery Method Room Air 02/28/23 10:00 Height 5 ft 9 in 02/27/23 01:51 Weight 313 lb 8 oz 02/27/23 01:51 Imaging: EXAM: ULTRASOUND ABDOMEN COMPLETE HISTORY: Elevated liver function test COMPARISON: CT 02/26/2023 TECHNIQUE: Complete ultrasound abdomen was FINDINGS: Pancreas poorly visualized secondary to shadowing artifact. Portions of the liver obscured secondary to shadowing artifact. Liver increased in echogenicity. Main portal vein patent with direction of flow. Patient status post cholecystectomy. No biliary duct dilation with common bile duct measuring 0.4 cm. Right kidney measures 11.1 cm in length. Left kidney measures 11.4 cm in length. No hydronephrosis. Spleen normal in echogenicity. Spleen, probably mildly enlarged, measuring 12.3 cm, likely technically foreshortened. Visualized portion aorta and inferior vena cava appear normal. IMPRESSION: 1. Echogenic liver may relate to hepatic steatosis and/or hepatic parenchymal disease. 2. Status post cholecystectomy. No biliary duct dilation. 3. Probable splenomegaly. Lab Results Last 24 Hours: 02/28/23 05:03 WBC 5.37 RBC 4.62 L Hgb 13.3 L Hct 39.7 L MCV 85.9 MCH 28.8 MCHC 33.5 RDW Coeff of Angel 12.6 Plt Count 225 Immature Gran % (Auto) 0.7 Neut % (Auto) 51.4 Lymph % (Auto) 37.4 Bollinger % (Auto) 7.4 Eos % (Auto) 2.4 Baso % (Auto) 0.7 Neut # (Auto) 2.8 Lymph # (Auto) 2.0 Bollinger # (Auto) 0.4 Eos # (Auto) 0.1 Baso # (Auto) 0.0 Immature Gran # (Auto) 0.0 Sodium 136.4 Potassium 3.97 Chloride 102.5 Carbon Dioxide 32.5 H Anion Gap 5.37 BUN 7.8 L Creatinine 1.03 Estimated GFR (MDRD) 79.00 BUN/Creatinine Ratio 7.57 Glucose 179.8 H D Calcium 7.66 L Total Bilirubin 0.76 AST 89.8 H D ALT 133.3 H Alkaline Phosphatase 120.9 Total Protein 5.80 L Albumin 3.40 L Globulin 2.40 Albumin/Globulin Ratio 1.41 Discharge Instructions Discharge Planning: Discharge Planning > 40 minutes Start protonix 20 mg daily Zofran 4 mg ODT and Reglan 10 mg as needed for nausea Avoid acidic, spicy, and fatty foods. Follow-up with PCP. If issue continues to worsen, discuss with PCP referral for EGD. Activity as tolerated. Discharge Medications: Medications at Discharge (Home Meds & RX) insulin lispro 100 unit/mL subcutaneous solution (Humalog U-100 Insulin) 130 unit SQ TIDWM 05/24/16 lisinopril 5 mg tablet (Zestril) 10 mg PO DAILY 01/11/17 atorvastatin 20 mg tablet 20 mg PO DAILY 02/26/23 carvedilol 12.5 mg tablet 12.5 mg PO BID 02/26/23 levothyroxine 150 mcg tablet 150 mcg PO DAILY 02/26/23 verapamil 180 mg tablet,extended release 180 mg PO DAILY 02/26/23 Discharge Plan Discharge Activity Restrictions/Additional Instructions: Start Protonix 20 mg daily Zofran 4 mg ODT and Reglan 10 mg as needed for nausea Avoid acidic, spicy, and fatty foods. Activity as tolerated. If issue continues to worsen, discuss with PCP referral for EGD. YOU HAVE A HOSPITAL FOLLOW UP WITH DR. TATE ON TuesdayFebruary AT 11:30AM. SHOULD YOU HAVE ANY QUESTIONS OR NEED TO RESCHEDULE YOU CAN CONTACT THEIR OFFICE AT [phone]. Instructions: Gastritis (GEN) Patient Disposition: HOME SELF-CARE Prescriptions: New pantoprazole [Protonix] 20 mg tablet,delayed release (DR/EC) 20 mg PO DAILY Qty: 14 0RF ondansetron 4 mg tablet,disintegrating 4 mg PO Q8H PRN (Reason: nausea and vomiting) Qty: 20 0RF metoclopramide HCl [Reglan] 10 mg tablet 10 mg PO Q6H PRN (Reason: nausea and vomiting) Qty: 20 0RF Continued insulin lispro [Humalog U-100 Insulin] 100 UNIT/1 ML solution 130 unit SQ TIDWM Rx Instructions: PRN SS atorvastatin 20 mg tablet 20 mg PO DAILY Patient Comments: TAKE 1 TABLET BY MOUTH ONCE DAILY carvedilol 12.5 mg tablet 12.5 mg PO BID Patient Comments: TAKE 1 TABLET BY MOUTH TWICE DAILY WITH MEALS levothyroxine 150 mcg tablet 150 mcg PO DAILY Patient Comments: TAKE 1 TABLET BY MOUTH ONCE DAILY, HOLD ON TUESDAY. verapamil 180 mg tablet extended release 180 mg PO DAILY Patient Comments: TAKE 1 TABLET BY MOUTH ONCE DAILY AT NIGHT lisinopril [Zestril] 5 MG tablet 10 mg PO DAILY Did you review [place] [employer] for ALL controlled substances?: No Discussed opioids are addictive and Narcan is available by prescription or from pharmacy.: No Condition: Stable
[2023-02-28] MEDS: LANTUS SUBCUT SCH (11:24)
[2023-03-01 05:19] LABS: HBsAgSCREEN Negative (Negative); HCV ANTIBODY Non Reactive (Non Reactive); HEP A AB, IgM Negative (Negative); HEP B CORE Ab, IgM Negative (Negative)
== END 2023-02-28 13:15 | disposition home or self-care (01) ==
LOC: ED 21:06 → MEDSURG B 21:06
PROVIDERS: ADMIT Hospitalist; ATTEND Nurse Practitioner Family
DX: R74.01 Elevation of levels of liver transaminase levels; Z51.81 Encounter for therapeutic drug level monitoring; E11.9 Type 2 diabetes mellitus without complications; K76.0 Fatty (change of) liver, not elsewhere classified; Z79.4 Long term (current) use of insulin; Z96.41 Presence of insulin pump (external) (internal); K29.70 Gastritis, unspecified, without bleeding; Z87.19 Personal history of other diseases of the digestive system; R10.84 Generalized abdominal pain; G47.30 Sleep apnea, unspecified; E03.9 Hypothyroidism, unspecified; I49.9 Cardiac arrhythmia, unspecified; K42.9 Umbilical hernia without obstruction or gangrene; I10 Essential (primary) hypertension; Z90.89 Acquired absence of other organs; Z79.899 Other long term (current) drug therapy; E78.5 Hyperlipidemia, unspecified